=== PATIENT | male | born 1985 | race Caucasian/White ===

== ENCOUNTER 2017-11-24 06:23 | Emergency (ER) | payer SELFPAY ==
[2017-11-24 06:30] VITALS: RESP 18
--- NOTE | 2017-11-24 07:33 | ED ---
General Adult HPI - General Chief complaint: Urogenital Stated complaint: Groin pain Time Seen by Provider: 11/24/17 07:22 Source: patient, RN notes reviewed Mode of arrival: ambulatory Limitations: no limitations - History of Present Illness Initial comments: Patient is a pleasant 32-year-old male presenting to the emergency department with left inguinal pain. Symptoms have been present for around one year. Symptoms have been somewhat worse the past couple of weeks. Discomfort usually is worse in the morning or late at night. Discomfort is also additional at times. Patient does not feel any lumps or bumps. No redness. Occasionally discomfort will radiate down somewhat towards the testicle. Otherwise no testicle pain. No fevers. No dysuria or hematuria. No constipation or diarrhea. - Related Data Home Medications Medication Instructions Recorded Confirmed No Known Home Medications [No 11/24/17 11/24/17 Known Home Medications] Allergies Allergy/AdvReac Type Severity Reaction Status Date / Time Milk Containing Products Allergy Swelling Verified 11/24/17 07:15 [Dairy] Review of Systems ROS Statement: Those systems with pertinent positive or pertinent negative responses have been documented in the HPI. ROS Other: All systems not noted in ROS Statement are negative. Constitutional: Denies: fever Eyes: Denies: eye pain ENT: Denies: ear pain Respiratory: Denies: cough Cardiovascular: Denies: chest pain Endocrine: Denies: fatigue Gastrointestinal: Denies: abdominal pain (The area is left inguinal) Genitourinary: Reports: as per HPI. Denies: urgency, dysuria, frequency, hematuria, discharge, testicular mass Musculoskeletal: Denies: back pain Skin: Denies: rash Neurological: Denies: weakness Past Medical History Past Medical History: COPD History of Any Multi-Drug Resistant Organisms: None Reported Past Surgical History: Orthopedic Surgery Additional Past Surgical History / Comment(s): right elbow Past Psychological History: No Psychological Hx Reported Smoking Status: Former smoker Past Alcohol Use History: Occasional Past Drug Use History: None Reported General Exam Limitations: no limitations General appearance: alert, in no apparent distress Respiratory exam: Present: normal lung sounds bilaterally Cardiovascular Exam: Present: regular rate, normal rhythm GI/Abdominal exam: Present: soft, normal bowel sounds. Absent: distended, tenderness, guarding, rebound, rigid, pulsatile mass exam: Present: other (Minimal discomfort left inguinal region. No swelling. No hernia on exam.). Absent: testicular tenderness, scrotal swelling Extremities exam: Present: normal inspection Neurological exam: Present: alert Psychiatric exam: Present: normal affect, normal mood Skin exam: Present: normal color. Absent: rash Course Vital Signs 11/24/17 06:26 Temperature 97.1 F L Pulse Rate 61 Respiratory 18 Rate Blood Pressure 139/76 O2 Sat by Pulse 98 Oximetry Medical Decision Making - Medical Decision Making Patient reevaluated and resting comfortably in bed. Patient is updated on results and need for follow-up. - Lab Data Lab Results 11/24/17 Range/Units 06:42 Urine Color Yellow Urine Appearance Clear (Clear) Urine pH 5.5 (5.0-8.0) Ur Specific [place] 1.025 (1.001-1.035) Urine Protein Negative (Negative) Urine Glucose (UA) Negative (Negative) Urine Ketones Negative (Negative) Urine Blood Negative (Negative) Urine Nitrite Negative (Negative) Urine Bilirubin Negative (Negative) Urine Urobilinogen <2.0 (<2.0) mg/dL Ur Leukocyte Esterase Negative (Negative) - Radiology Data Radiology results: report reviewed (Scrotal ultrasound shows no evidence of torsion. There is a minimal varicocele on the left.), image reviewed (KUB shows : Correlate for enteritis or ileus.) Disposition Clinical Impression: Left inguinal pain Disposition: HOME SELF-CARE Condition: Stable Instructions: Groin Pain (ED) Additional Instructions: Please follow-up with surgeon and urologist in the next couple of days for recheck. Please also follow-up with primary care physician. Return for swelling, redness, abdominal pain, fevers, worsening or changing symptoms or other concerns. Is patient prescribed a controlled substance at d/c from ED?: No Referrals: Chase Pantoja MD [STAFF PHYSICIAN] - 1-2 days Michael Saleem MD [STAFF PHYSICIAN] - 1-2 days Yesica Drew MD [REFERRING] - 1-2 days Time of Disposition: 08:35
[2017-11-24 07:49] LABS: Appearance,Urine Clear (Clear); Bilirubin,Urine Negative (Negative); Blood,Urine Negative (Negative); Color,Urine Yellow; Glucose,Urine (UA) Negative (Negative); Ketones,Urine Negative (Negative); Leukocyte Esterase,Urine Negative (Negative); Nitrite,Urine Negative (Negative); PH, Urine 5.5 (5.0-8.0); Protein,Urine Negative (Negative); Specific Gravity,Urine 1.025 (1.001-1.035); Urobilinogen,Urine <2.0 mg/dL (<2.0)
--- NOTE | 2017-11-24 08:17 | US ---
EXAMINATION TYPE: US scrotum with doppler. Grayscale and color Doppler Duplex imaging performed of t he scrotum. DATE OF EXAM: 11/24/2017 COMPARISON: NONE CLINICAL HISTORY: Pain, examine L inguinal area. Left groin pain EXAM MEASUREMENTS: TESTICLES: Right Testicle: 4.2 x 2.3 x 3.0 cm Left Testicle: 4.0 x 1.9 x 3.0 cm EPIDIDYMIS HEAD: Right Epididymis: 1.1 cm Left Epididymis: 0.7 cm Doppler performed to assess for testicular vascularity; good bilateral color flow and waveforms are s een. There is no evidence of testicular torsion. Presence of hydroceles: No Presence of varicoceles: Minimal, on the left Testicular echotexture is homogenous and symmetric. IMPRESSION: No evident testicular torsion.
--- NOTE | 2017-11-24 08:18 | XR ---
Abdomen HISTORY: Left lower quadrant pain Frontal view of the abdomen on 2 images Bone mineralization is normal. There is no pneumoperitoneum or bowel obstruction. Air-fluid levels ar e present without bowel distention. Lung bases are clear. IMPRESSION: Correlate for enteritis or ileus, follow-up as indicated.
[2017-11-24 08:48] VITALS: BP 122/79
[2017-11-24 08:49] VITALS: PULSE 62; TEMP 97.3
== END 2017-11-24 08:57 | disposition home or self-care (01) ==
LOC: EC 06:23
DX: R10.32 Left lower quadrant pain (principal); I86.1 Scrotal varices; Z87.891 Personal history of nicotine dependence; Z91.011 Allergy to milk products
CPT/HCPCS: 74018; 76870; 81003; 87086; 93975; 99284

== ENCOUNTER 2019-09-03 09:47 | Inpatient (IN) | payer BC, OTHER ==
[2019-09-03] MEDS: SODIUM CHLORIDE 0.9% 1,000 ML IV ONE ×2 (11:00→11:52)
[2019-09-03] MEDS ORDERED: methylPREDNISolone SOD SUCCI 125 MG/2 ML VIAL IV STA (11:19)
[2019-09-03] MEDS ORDERED: IPRATROPIUM-ALBUTEROL 3 ML NEB INHALATION STA ×2 (11:19→12:15)
[2019-09-03] MEDS ORDERED: ACETAMINOPHEN TAB 500 MG TAB PO STA (11:50)
[2019-09-03] MEDS ORDERED: KETOROLAC 30 MG/ML 1 ML VIAL IVP STA (11:50)
--- NOTE | 2019-09-03 11:57 | ED ---
General Adult HPI - General Source: patient, RN notes reviewed, old records reviewed Mode of arrival: ambulatory Limitations: no limitations <China Santo - Last Filed: 09/03/19 13:13> <Briana Shah - Last Filed: 09/05/19 20:04> - General Chief complaint: Upper Respiratory Infection Stated complaint: SOB/Chest Pain/Cough Time Seen by Provider: 09/03/19 10:00 - History of Present Illness Initial comments: Patient is a 33-year-old male with a history of asthma who presents today with complaints of wheezing, shortness of breath and cough and low-grade fever for the past day. Patient has had no history of sick contacts. He is here with his 's otherwise been healthy. They deny any recent travel history. Patient reports that he has been admitted in the past for prolonged asthma. Denies any history of intubation. Patient reports he previously saw Dr. Wise. (China Santo) - Related Data Home Medications Medication Instructions Recorded Confirmed Famotidine 40 mg PO DAILY 09/03/19 09/03/19 Allergies Allergy/AdvReac Type Severity Reaction Status Date / Time Milk Containing Products Allergy Swelling Verified 09/03/19 13:17 [Dairy] Review of Systems ROS Other: All systems not noted in ROS Statement are negative. <China Santo - Last Filed: 09/03/19 13:13> ROS Other: All systems not noted in ROS Statement are negative. <Briana Shah - Last Filed: 09/05/19 20:04> ROS Statement: Those systems with pertinent positive or pertinent negative responses have been documented in the HPI. Past Medical History Past Medical History: COPD History of Any Multi-Drug Resistant Organisms: None Reported Past Surgical History: Orthopedic Surgery Additional Past Surgical History / Comment(s): right elbow Past Psychological History: No Psychological Hx Reported Smoking Status: Former smoker Past Alcohol Use History: Occasional Past Drug Use History: None Reported <China Santo - Last Filed: 09/03/19 13:13> General Exam Limitations: no limitations General appearance: alert, in no apparent distress Head exam: Present: atraumatic, normocephalic, normal inspection Eye exam: Present: normal appearance, PERRL, EOMI. Absent: scleral icterus, conjunctival injection, periorbital swelling ENT exam: Present: normal exam Neck exam: Present: normal inspection. Absent: tenderness, meningismus, lymphadenopathy Respiratory exam: Present: wheezes. Absent: normal lung sounds bilaterally, respiratory distress, rales, rhonchi, stridor Cardiovascular Exam: Present: regular rate, normal rhythm, normal heart sounds. Absent: systolic murmur, diastolic murmur, rubs, gallop, clicks GI/Abdominal exam: Present: soft, normal bowel sounds. Absent: distended, tenderness, guarding, rebound, rigid Extremities exam: Present: normal inspection, full ROM, normal capillary refill. Absent: tenderness, pedal edema, joint swelling, calf tenderness Back exam: Present: normal inspection Neurological exam: Present: alert, oriented X3, CN II-XII intact Psychiatric exam: Present: normal affect, normal mood Skin exam: Present: warm, dry, intact, normal color. Absent: rash <China Santo - Last Filed: 09/03/19 13:13> - General Exam Comments Initial Comments: 33 year old male. No distress, wheezing. (China Santo) Course Vital Signs 09/03/19 09/03/19 09/03/19 09:53 10:30 10:53 Temperature 98.4 F Pulse Rate 117 H 107 H 118 H Respiratory 18 22 20 Rate Blood Pressure 114/84 O2 Sat by Pulse 98 Oximetry 09/03/19 09/03/19 09/03/19 12:27 12:37 12:57 Temperature 98.1 F Pulse Rate 112 H 126 H 111 H Respiratory 20 18 15 Rate Blood Pressure 112/76 O2 Sat by Pulse 94 L Oximetry 09/03/19 14:15 Temperature 98 F Pulse Rate 115 H Respiratory 20 Rate Blood Pressure 111/70 O2 Sat by Pulse 95 Oximetry Medical Decision Making - Lab Data Result diagrams: 09/03/19 10:36 09/03/19 10:36 - Radiology Data Radiology results: report reviewed <China Santo - Last Filed: 09/03/19 13:13> - Lab Data Result diagrams: 09/04/19 07:20 09/04/19 07:20 <Briana Shah - Last Filed: 09/05/19 20:04> - Medical Decision Making Patient is a 33-year-old male who presents today for evaluation for difficulty breathing and wheezing. Worsening symptoms over the past 2 days. He is a nonsmoker. Patient reports his been using albuterol home and not having any relief. Patient arrived tachycardic with audible wheezing upon entering room. Patient has been slightly improved after 3 DuoNeb treatments but continues to be hypoxic at 92% on room air. Given IV Solu-Medrol magnesium. Is given Toradol for her history of fever recently. He has been afebrile emergency department. He denies any travel history or history of sick contacts. At this time Patient will be admitted after discussing the case with Dr. Marx. She discussed the case with [facility] hospitalist. Also chest x-ray shows evidence of bronchitis or atypical pneumonia. Patient will have blood cultures completed, and started on Rocephin and azithromycin. (China Santo) I was available for consultation in the emergency department. The history and physical exam were done by the midlevel provider. I was consulted for this patients care. I reviewed the case with the midlevel provider and based on their presentation of the patient, I agree with the assessment, medical decision making and plan of care as documented. Chart was dictated using [employer] dictation software. Attempts were made to correct any dictation errors however some typographical errors may persist. (Briana Shah) - Lab Data Lab Results 09/03/19 09/03/19 09/03/19 Range/Units 09:56 10:36 10:36 WBC 15.6 H (3.8-10.6) k/uL RBC 5.71 (4.30-5.90) m/uL Hgb 16.7 (13.0-17.5) gm/dL Hct 50.4 (39.0-53.0) % MCV 88.2 (80.0-100.0) fL MCH 29.2 (25.0-35.0) pg MCHC 33.1 (31.0-37.0) g/dL RDW 12.1 (11.5-15.5) % Plt Count 220 (150-450) k/uL Neutrophils % 84 % Lymphocytes % 7 % Monocytes % 5 % Eosinophils % 3 % Basophils % 0 % Neutrophils # 13.1 H (1.3-7.7) k/uL Lymphocytes # 1.0 (1.0-4.8) k/uL Monocytes # 0.8 (0-1.0) k/uL Eosinophils # 0.5 (0-0.7) k/uL Basophils # 0.0 (0-0.2) k/uL Sodium 143 (137-145) mmol/L Potassium 4.4 (3.5-5.1) mmol/L Chloride 102 (98-107) mmol/L Carbon Dioxide 31 H (22-30) mmol/L Anion Gap 10 mmol/L BUN 13 (9-20) mg/dL Creatinine 0.85 (0.66-1.25) mg/dL Est GFR (CKD-EPI)AfAm >90 (>60 ml/min/1.73 sqM) Est GFR (CKD-EPI)NonAf >90 (>60 ml/min/1.73 sqM) Glucose 100 H (74-99) mg/dL Calcium 10.0 (8.4-10.2) mg/dL Total Bilirubin 0.9 (0.2-1.3) mg/dL AST 24 (17-59) U/L ALT 21 (4-49) U/L Alkaline Phosphatase 88 (38-126) U/L Total Protein 8.2 (6.3-8.2) g/dL Albumin 5.3 H (3.5-5.0) g/dL Influenza Type A RNA Not Detected (Not Detectd) Influenza Type B (PCR) Not Detected (Not Detectd) - Radiology Data Chest x-ray shows coarse and prominent perihilar lung markings. Consider b ronchitis or atypical pneumonia. (China Santo) Disposition Is patient prescribed a controlled substance at d/c from ED?: No Time of Disposition: 13:17 <China Santo - Last Filed: 09/03/19 13:13> <Briana Shah - Last Filed: 09/05/19 20:04> Clinical Impression: Asthma, Bronchitis, Hypoxia Disposition: ADMITTED IP TO THIS HOSP Condition: Stable
[2019-09-03 12:02] LABS: Basophils % (A) 0 %; Eosinophils # (A) 0.5 k/uL (0-0.7); Eosinophils % (A) 3 %; HCT 50.4 % (39.0-53.0); HGB 16.7 gm/dL (13.0-17.5); Lymphocytes % (A) 7 %; MCH 29.2 pg (25.0-35.0); MCHC 33.1 g/dL (31.0-37.0); MCV 88.2 fL (80.0-100.0); Mean Platelet Volume 8.6; Monocytes # (A) 0.8 k/uL (0-1.0); Monocytes % (A) 5 %; Neutrophils # (A) 13.1 k/uL (1.3-7.7); Neutrophils % (A) 84 %; Platelet Count 220 k/uL (150-450); RBC 5.71 m/uL (4.30-5.90); RDW 12.1 % (11.5-15.5); WBC 15.6 k/uL (3.8-10.6)
[2019-09-03 12:10] LABS: ALT 21 U/L (4-49); AST 24 U/L (17-59); African American GFR (CKD) >90 (>60 ml/min/1.73 sqM); Albumin 5.3 g/dL (3.5-5.0); Alkaline Phosphatase 88 U/L (38-126); Anion Gap 10 mmol/L; Blood Urea Nitrogen 13 mg/dL (9-20); Carbon Dioxide 31 mmol/L (22-30); Chloride 102 mmol/L (98-107); Glucose 100 mg/dL (74-99); Non-African American GFR(CKD) >90 (>60 ml/min/1.73 sqM); Potassium 4.4 mmol/L (3.5-5.1); Sodium 143 mmol/L (137-145); Total Bilirubin 0.9 mg/dL (0.2-1.3); Total Protein 8.2 g/dL (6.3-8.2)
[2019-09-03] MEDS ORDERED: MAGNESIUM SULFATE-D5W PMX 1 GM in DEXTROSE/WATER 1 100ML.BAG IVPB STA (12:15)
--- NOTE | 2019-09-03 12:40 | XR ---
EXAMINATION TYPE: XR chest 2V DATE OF EXAM: 09/03/2019 COMPARISON: 05/06/2013 HISTORY: Cough and fever TECHNIQUE: Frontal and lateral views of the chest are obtained. FINDINGS: Prominent perihilar lung markings. There is no focal air space opacity, pleural effusion, or pneumothorax seen. The cardiac silhouette size is within normal limits. The osseous structures are intact. IMPRESSION: Coarsened and prominent perihilar lung markings. Consider bronchitis or atypical pneumon ia.
[2019-09-03] MEDS: SODIUM CHLORIDE 0.9% 1,000 ML IV SCH ×2 (12:51→20:39)
[2019-09-03] MEDS ORDERED: AZITHROMYCIN 500 MG TAB PO STA (12:57)
[2019-09-03] MEDS ORDERED: KETOROLAC 30 MG/ML 1 ML VIAL IVP PRN (13:17)
[2019-09-03] MEDS ORDERED: IBUPROFEN 400 MG TAB PO PRN (13:17)
[2019-09-03] MEDS ORDERED: ONDANSETRON 4 MG/2 ML VIAL IVP PRN (13:17)
[2019-09-03] MEDS ORDERED: NALOXONE 0.4 MG/ML 1 ML VIAL IV PRN (13:17)
[2019-09-03] MEDS: IPRATROPIUM-ALBUTEROL 3 ML NEB INHALATION PRN ×2 (15:57→19:53)
[2019-09-03 17:04] LABS: Glucose,Whole Blood 171 mg/dL (75-99)
[2019-09-03] MEDS: methylPREDNISolone SOD SUCCI 125 MG/2 ML VIAL IV SCH ×2 (18:05→23:19)
[2019-09-03] MEDS: INSULIN ASPART (NovoLOG) 100 UNIT/ML VIAL SQ SCH ×2 (18:05→20:38)
[2019-09-03 20:18] LABS: Glucose,Whole Blood 145 mg/dL (75-99)
[2019-09-03] MEDS: guaiFENesin 600 MG TABLET.ER PO SCH (20:38)
[2019-09-03] MEDS: FAMOTIDINE 20 MG TAB PO SCH (20:38)
--- NOTE | 2019-09-03 21:16 | P.HPIM ---
History of Present Illness H&P Date: 09/03/19 Chief Complaint: Shortness of breath Patient is a 33-year-old male with a known history of asthma, previous history of smoking quit several years ago came to ER with complaints of shortness of breath, cough and nasal congestion and low-grade fever since yesterday. Patient does have cough without sputum production. No complaints of chest pain. No nausea vomiting or abdominal pain. Denied any diarrhea. Otherwise patient denied any sick contacts at home. No recent history of travel. No headache or dizziness or lightheadedness. Patient presented to ER due to worsening shortness of breath. Influenza A and B- WBC 15.6 Bicarb 31 Chest x-ray showed coarsened and prominent perihilar lung markings. Consider bronchitis or atypical pneumonia. Patient was tachycardic with heart rate in 120s on admission. Afebrile while in the hospital. Review of Systems Constitutional: Patient does have subjective fever or chills . Generalized weakness and malaise.. Abdomen: Patient denied nausea vomiting and diarrhea and abdominal pain. Cardiovascular: Patient denies any chest pain or short of breath no palpitations. Respiratory: Cough without sputum production and shortness of breath Neurologic: Patient denied any numbness or tingling headache. Musculoskeletal: Patient denies any complaints of joint swelling or deformity. Skin: Negative Psychiatric: Negative Endocrine: No heat or cold intolerance. No recent weight gain. Genitourinary: No dysuria or hematuria. All other 14 point ROS negative except the above Past Medical History Past Medical History: COPD History of Any Multi-Drug Resistant Organisms: None Reported Past Surgical History: Orthopedic Surgery Additional Past Surgical History / Comment(s): right elbow Past Psychological History: No Psychological Hx Reported Smoking Status: Former smoker Past Alcohol Use History: Occasional Past Drug Use History: None Reported - Past Family History Mother Family Medical History: Coronary Artery Disease (CAD), Hyperlipidemia, Hypertension Father Family Medical History: Coronary Artery Disease (CAD), Hyperlipidemia, Hypertension, Myocardial Infarction ([place]) Medications and Allergies Home Medications Medication Instructions Recorded Confirmed Type Famotidine 40 mg PO DAILY 09/03/19 09/03/19 History Allergies Allergy/AdvReac Type Severity Reaction Status Date / Time Milk Containing Products Allergy Swelling Verified 09/03/19 13:17 [Dairy] Physical Exam Vitals: Vital Signs Temp Pulse Resp BP Pulse Ox 09/03/19 14:15 98 F 115 H 20 111/70 95 09/03/19 12:57 98.1 F 111 H 15 112/76 94 L 09/03/19 12:37 126 H 18 09/03/19 12:27 112 H 20 09/03/19 10:53 118 H 20 09/03/19 10:30 107 H 22 09/03/19 09:53 98.4 F 117 H 18 114/84 98 Intake and Output 09/02/19 09/03/19 09/03/19 22:59 06:59 14:59 Other: Weight 77.111 kg PHYSICAL EXAMINATION: Patient is lying in the bed comfortably, no acute distress, awake alert and oriented.. HEENT: Normocephalic. Neck is supple. Pupils reactive. Nostrils clear. Oral cavity is moist. Ears reveal no drainage. Neck reveals no JVD, carotid bruits, or thyromegaly. CHEST EXAMINATION: Trachea is central. Symmetrical expansion. biLateral diminished air entry and wheezing, coarse breath sounds.. CARDIAC: Normal S1, S2 with no gallops. No murmurs ABDOMEN: Soft. Bowel sounds normal. No organomegaly. No abdominal bruits. Extremities: reveal no edema. No clubbing or cyanosis Neurologically awake, alert, oriented x3 with well-coordinated movements. No focal deficits noted Skin: No rash or skin lesions. Psychiatric: Coperative. Nonsuicidal Musculoskeletal: No joint swelling or deformity. Normal range of motion. Results CBC & Chem 7: 09/03/19 10:36 09/03/19 10:36 Labs: Abnormal Lab Results - Last 24 Hours (Table) 09/03/19 09/03/19 Range/Units 10:36 10:36 WBC 15.6 H (3.8-10.6) k/uL Neutrophils # 13.1 H (1.3-7.7) k/uL Carbon Dioxide 31 H (22-30) mmol/L Glucose 100 H (74-99) mg/dL Albumin 5.3 H (3.5-5.0) g/dL Thrombosis Risk Factor Assmnt - DVT/VTE Prophylaxis DVT/VTE Prophylaxis: Pharmacologic Prophylaxis ordered Assessment and Plan Assessment: Acute COPD exacerbation due to tracheobronchitis. Nasal congestion, cough and subjective fevers at home due to acute viral illness. Influenza negative. Possible pneumonia with prominent peribronchial lung markings Leukocytosis with WBC count 15.6 Previous history of smoking DVT prophylaxis Plan: Patient will be continued on IV steroids, DuoNeb's and antibiotics in the form of ceftriaxone and azithromycin. Influenza A and B-. Rule out viral infection. Continue to follow closely and further recommendations based on the clinical course. Consider pulmonary evaluation. Patient follows with Dr. Wise as an outpatient. Time with Patient: Greater than 30
[2019-09-04] MEDS: methylPREDNISolone SOD SUCCI 125 MG/2 ML VIAL IV SCH ×4 (03:48→23:20)
[2019-09-04 07:08] LABS: Glucose,Whole Blood 148 mg/dL (75-99)
[2019-09-04] MEDS: IPRATROPIUM-ALBUTEROL 3 ML NEB INHALATION PRN ×4 (07:29→20:00)
[2019-09-04 08:07] LABS: African American GFR (CKD) >90 (>60 ml/min/1.73 sqM); Anion Gap 10 mmol/L; Blood Urea Nitrogen 15 mg/dL (9-20); Calcium 9.4 mg/dL (8.4-10.2); Carbon Dioxide 22 mmol/L (22-30); Chloride 110 mmol/L (98-107); Glucose 149 mg/dL (74-99); Non-African American GFR(CKD) >90 (>60 ml/min/1.73 sqM); Potassium 4.1 mmol/L (3.5-5.1); Sodium 142 mmol/L (137-145)
[2019-09-04 08:14] LABS: Basophils % (A) 0 %; Eosinophils # (A) 0.1 k/uL (0-0.7); Eosinophils % (A) 1 %; HCT 46.8 % (39.0-53.0); Lymphocytes # (A) 0.7 k/uL (1.0-4.8); Lymphocytes % (A) 4 %; MCH 28.7 pg (25.0-35.0); MCHC 32.1 g/dL (31.0-37.0); MCV 89.4 fL (80.0-100.0); Mean Platelet Volume 8.4; Monocytes # (A) 0.2 k/uL (0-1.0); Monocytes % (A) 1 %; Neutrophils # (A) 14.1 k/uL (1.3-7.7); Neutrophils % (A) 94 %; Platelet Count 197 k/uL (150-450); RBC 5.24 m/uL (4.30-5.90); RDW 12.3 % (11.5-15.5)
[2019-09-04] MEDS: INSULIN ASPART (NovoLOG) 100 UNIT/ML VIAL SQ SCH ×4 (09:31→22:47)
[2019-09-04] MEDS: FAMOTIDINE 20 MG TAB PO SCH ×2 (09:51→19:41)
[2019-09-04] MEDS: SODIUM CHLORIDE 0.9% 1,000 ML IV SCH ×2 (09:51→19:37)
[2019-09-04] MEDS: guaiFENesin 600 MG TABLET.ER PO SCH ×2 (09:51→19:41)
[2019-09-04 12:04] LABS: Glucose,Whole Blood 126 mg/dL (75-99)
[2019-09-04] MEDS: AZITHROMYCIN 500 MG TAB PO SCH (12:23)
[2019-09-04 16:52] LABS: Glucose,Whole Blood 176 mg/dL (75-99)
[2019-09-04 19:54] LABS: Glucose,Whole Blood 112 mg/dL (75-99)
--- NOTE | 2019-09-04 22:05 | P.PN ---
Subjective Progress Note Date: 09/04/19 Principal diagnosis: Acute asthma exacerbation Acute tracheobronchitis possible viral. Patient is a 33-year-old male with a known history of asthma, previous history of smoking quit several years ago came to ER with complaints of shortness of breath, cough and nasal congestion and low-grade fever since yesterday. Patient does have cough without sputum production. No complaints of chest pain. No nausea vomiting or abdominal pain. Denied any diarrhea. Otherwise patient denied any sick contacts at home. No recent history of travel. No headache or dizziness or lightheadedness. Patient presented to ER due to worsening shortness of breath. Influenza A and B- WBC 15.6 Bicarb 31 Chest x-ray showed coarsened and prominent perihilar lung markings. Consider bronchitis or atypical pneumonia. Patient was tachycardic with heart rate in 120s on admission. Afebrile while in the hospital. 09/04/2019 Patient denied any complaints of chest pain. Still having shortness of breath and wheezing and exertional dyspnea. Patient has been afebrile. Does have leukocytosis likely due to IV steroids. Pending covid19 test. Patient is being continued on IV steroids, DuoNeb's. We will repeat chest x-ray tomorrow and follow closely. Continue with droplet and contact precautions. No nausea vomiting or abdominal pain or diarrhea. Current medications reviewed. Objective - Vital Signs Vital signs: Vital Signs Temp 98.0 F 09/04/19 16:00 Pulse 102 H 09/04/19 20:12 Resp 18 09/04/19 20:00 BP 134/79 09/04/19 16:00 Pulse Ox 98 09/04/19 16:17 Intake & Output 09/04/19 09/04/19 09/05/19 06:59 18:59 06:59 Intake Total 700 Balance 700 Intake: Intake, IV Titration 700 Amount Sodium Chloride 0.9% 1, 700 000 ml @ 100 mls/hr IV . Q10H [facility] Rx#:[id number] Other: Voiding Method Toilet Toilet Toilet # Voids 1 1 - Exam PHYSICAL EXAMINATION: Patient is lying in the bed comfortably, no acute distress, awake alert and oriented.. HEENT: Normocephalic. Neck is supple. Pupils reactive. Nostrils clear. Oral cavity is moist. Ears reveal no drainage. Neck reveals no JVD, carotid bruits, or thyromegaly. CHEST EXAMINATION: Trachea is central. Symmetrical expansion. Bilateral diffuse wheezing and rhonchi positive. . CARDIAC: Normal S1, S2 with no gallops. No murmurs ABDOMEN: Soft. Bowel sounds normal. No organomegaly. No abdominal bruits. Extremities: reveal no edema. No clubbing or cyanosis Neurologically awake, alert, oriented x3 with well-coordinated movements. No focal deficits noted Skin: No rash or skin lesions. Psychiatric: Coperative. Nonsuicidal Musculoskeletal: No joint swelling or deformity. Normal range of motion. - Labs CBC & Chem 7: 09/04/19 07:20 09/04/19 07:20 Labs: Abnormal Lab Results - Last 24 Hours (Table) 09/04/19 09/04/19 09/04/19 Range/Units 07:06 07:20 07:20 WBC 15.0 H (3.8-10.6) k/uL Neutrophils # 14.1 H (1.3-7.7) k/uL Lymphocytes # 0.7 L (1.0-4.8) k/uL Chloride 110 H (98-107) mmol/L Glucose 149 H (74-99) mg/dL POC Glucose (mg/dL) 148 H (75-99) mg/dL 09/04/19 09/04/19 09/04/19 Range/Units 12:01 16:49 19:52 WBC (3.8-10.6) k/uL Neutrophils # (1.3-7.7) k/uL Lymphocytes # (1.0-4.8) k/uL Chloride (98-107) mmol/L Glucose (74-99) mg/dL POC Glucose (mg/dL) 126 H 176 H 112 H (75-99) mg/dL Microbiology - Last 24 Hours (Table) 09/03/19 13:24 Blood Culture - Preliminary Blood No Growth after 24 hours Assessment and Plan Assessment: Acute COPD exacerbation due to tracheobronchitis. Nasal congestion, cough and subjective fevers at home due to acute viral illness. Influenza negative. Possible pneumonia with prominent peribronchial lung markings Leukocytosis with WBC count 15.6 Previous history of smoking DVT prophylaxis Plan: Patient will be continued on IV steroids, DuoNeb's and antibiotics in the form of ceftriaxone and azithromycin. Influenza A and B-. Rule out viral infection. Continue to follow closely and further recommendations based on the clinical course. Consider pulmonary evaluation. Patient follows with Dr. Wise as an outpatient. Time with Patient: Greater than 30
[2019-09-04] MEDS: HEPARIN SODIUM,PORCINE 5,000 UNIT/ML 1 ML VIAL SQ SCH (23:19)
[2019-09-05] MEDS: methylPREDNISolone SOD SUCCI 125 MG/2 ML VIAL IV SCH ×4 (05:12→23:20)
[2019-09-05 06:48] LABS: Glucose,Whole Blood 132 mg/dL (75-99)
[2019-09-05] MEDS: IPRATROPIUM-ALBUTEROL 3 ML NEB INHALATION PRN ×2 (07:31→20:42)
[2019-09-05] MEDS: BUDESONIDE 0.5 MG/2 ML NEBU INHALATION SCH ×2 (07:31→20:42)
--- NOTE | 2019-09-05 07:41 | XR ---
EXAMINATION TYPE: XR chest 1V DATE OF EXAM: 09/05/2019 COMPARISON: 09/03/2019 HISTORY: Shortness of breath TECHNIQUE: Single frontal view of the chest is obtained. FINDINGS: There is no focal air space opacity, pleural effusion, or pneumothorax seen. The cardiac silhouette size is within normal limits. The osseous structures are intact. IMPRESSION: No acute process.
[2019-09-05] MEDS: HEPARIN SODIUM,PORCINE 5,000 UNIT/ML 1 ML VIAL SQ SCH ×3 (09:47→23:20)
[2019-09-05] MEDS: guaiFENesin 600 MG TABLET.ER PO SCH ×2 (09:47→20:20)
[2019-09-05] MEDS: FAMOTIDINE 20 MG TAB PO SCH ×2 (09:47→17:28)
[2019-09-05] MEDS: INSULIN ASPART (NovoLOG) 100 UNIT/ML VIAL SQ SCH ×4 (09:47→20:17)
[2019-09-05] MEDS: ACETAMINOPHEN TAB 325 MG TAB PO PRN ×2 (09:49→21:13)
[2019-09-05] MEDS: AZITHROMYCIN 500 MG TAB PO SCH (12:10)
[2019-09-05 12:12] LABS: Glucose,Whole Blood 116 mg/dL (75-99)
--- NOTE | 2019-09-05 12:50 | P.CNPUL ---
History of Present Illness Consult date: 09/05/19 Reason for consult: dyspnea, cough, asthma, COPD Chief complaint: Shortness of breath History of present illness: This is a 33-year-old male seen eval examined, patient came into the hospital with 5 day history of increasing cough congestion shortness of breath, patient has a history of severe asthma in the past, denies any chills cough is associated with yellow sputum production his chest x-ray suggestive of the pro minent perihilar marking, however follow-up chest x-ray essentially within normal limit Review of Systems All systems: negative Past Medical History Past Medical History: COPD History of Any Multi-Drug Resistant Organisms: None Reported Past Surgical History: Orthopedic Surgery Additional Past Surgical History / Comment(s): right elbow Past Psychological History: No Psychological Hx Reported Smoking Status: Former smoker Past Alcohol Use History: Occasional Past Drug Use History: None Reported - Past Family History Mother Family Medical History: Coronary Artery Disease (CAD), Hyperlipidemia, Hypertension Father Family Medical History: Coronary Artery Disease (CAD), Hyperlipidemia, Hypertension, Myocardial Infarction (DE) Medications and Allergies Home Medications Medication Instructions Recorded Confirmed Type Famotidine 40 mg PO DAILY 09/03/19 09/03/19 History Allergies Allergy/AdvReac Type Severity Reaction Status Date / Time Milk Containing Products Allergy Swelling Verified 09/03/19 13:17 [Dairy] Physical Exam Vitals: Vital Signs Temp Pulse Pulse Resp BP Pulse Ox 09/05/19 09:39 97.7 F 98 16 145/71 92 L 09/04/19 23:58 78 18 09/04/19 23:53 78 18 09/04/19 23:30 97.9 F 78 18 132/77 95 09/04/19 20:12 102 H 09/04/19 20:03 98 09/04/19 20:00 109 H 18 09/04/19 16:26 105 H 09/04/19 16:17 98 09/04/19 16:16 103 H 09/04/19 16:00 98.0 F 109 H 18 134/79 95 09/04/19 13:51 93 09/04/19 13:36 89 Intake and Output 09/04/19 09/05/19 09/05/19 22:59 06:59 14:59 Intake Total 60 Balance 60 Intake: Intake, IV Titration 60 Amount Sodium Chloride 0.9% 1, 60 000 ml @ 100 mls/hr IV . Q10H [facility] Rx#:[id number] Other: Voiding Method Toilet Toilet Toilet # Voids 1 1 - Constitutional General appearance: average body habitus, cooperative - EENT Eyes: normal appearance ENT: normal oropharynx Ears: bilateral: normal - Neck Carotids: bilateral: upstroke normal Thyroid: bilateral: normal size - Respiratory Respiratory: bilateral: wheezing (Bilateral inspiratory expiratory), prolonged expiration, negative: CTA, diminished, dullness, rales, rhonchi - Cardiovascular Rhythm: regular Heart sounds: normal: S1, S2 - Gastrointestinal General gastrointestinal: soft - Integumentary Integumentary: normal turgor - Neurologic Neurologic: CNII-XII intact - Musculoskeletal Musculoskeletal: gait normal, generalized weakness, strength equal bilaterally - Psychiatric Psychiatric: A&O x's 3, appropriate affect, intact judgment & insight Results - Laboratory Findings CBC and BMP: 09/04/19 07:20 09/04/19 07:20 Abnormal lab findings: Abnormal Labs 09/03/19 09/03/19 09/03/19 10:36 10:36 17:03 WBC 15.6 H Neutrophils # 13.1 H Lymphocytes # Chloride Carbon Dioxide 31 H Glucose 100 H POC Glucose (mg/dL) 171 H Albumin 5.3 H 09/03/19 09/04/19 09/04/19 20:15 07:06 07:20 WBC 15.0 H Neutrophils # 14.1 H Lymphocytes # 0.7 L Chloride Carbon Dioxide Glucose POC Glucose (mg/dL) 145 H 148 H Albumin 09/04/19 09/04/19 09/04/19 07:20 12:01 16:49 WBC Neutrophils # Lymphocytes # Chloride 110 H Carbon Dioxide Glucose 149 H POC Glucose (mg/dL) 126 H 176 H Albumin 09/04/19 09/05/19 09/05/19 19:52 06:46 12:10 WBC Neutrophils # Lymphocytes # Chloride Carbon Dioxide Glucose POC Glucose (mg/dL) 112 H 132 H 116 H Albumin - Diagnostic Findings Chest x-ray: report reviewed, image reviewed (Finding as noted above) Assessment and Plan Assessment: Interstitial pneumonia Acute asthma exacerbation History of COPD Chronic intermittent asthma has been stable off of therapy Plan: Continue bronchodilators IV steroids with broad-spectrum antibiotics Time with Patient: Greater than 30
[2019-09-05 16:34] LABS: Glucose,Whole Blood 128 mg/dL (75-99)
[2019-09-05 19:32] LABS: Glucose,Whole Blood 128 mg/dL (75-99)
[2019-09-06] MEDS: methylPREDNISolone SOD SUCCI 125 MG/2 ML VIAL IV SCH ×4 (04:52→23:25)
[2019-09-06 07:37] LABS: Glucose,Whole Blood 149 mg/dL (75-99)
[2019-09-06] MEDS: BUDESONIDE 0.5 MG/2 ML NEBU INHALATION SCH ×2 (08:01→20:34)
[2019-09-06] MEDS: IPRATROPIUM-ALBUTEROL 3 ML NEB INHALATION PRN ×4 (08:01→20:34)
[2019-09-06] MEDS: INSULIN ASPART (NovoLOG) 100 UNIT/ML VIAL SQ SCH ×4 (08:07→20:35)
[2019-09-06] MEDS: HEPARIN SODIUM,PORCINE 5,000 UNIT/ML 1 ML VIAL SQ SCH ×3 (08:07→23:25)
[2019-09-06] MEDS: FAMOTIDINE 20 MG TAB PO SCH ×2 (08:07→20:22)
[2019-09-06] MEDS: guaiFENesin 600 MG TABLET.ER PO SCH ×2 (08:07→20:22)
[2019-09-06 11:55] LABS: Glucose,Whole Blood 132 mg/dL (75-99)
[2019-09-06 12:01] LABS: Basophils % (A) 0 %; Eosinophils # (A) 0.1 k/uL (0-0.7); Eosinophils % (A) 0 %; HCT 46.5 % (39.0-53.0); HGB 15.2 gm/dL (13.0-17.5); Lymphocytes # (A) 0.6 k/uL (1.0-4.8); Lymphocytes % (A) 4 %; MCH 29.3 pg (25.0-35.0); MCHC 32.6 g/dL (31.0-37.0); MCV 89.7 fL (80.0-100.0); Mean Platelet Volume 8.4; Monocytes # (A) 0.7 k/uL (0-1.0); Monocytes % (A) 5 %; Neutrophils # (A) 13.6 k/uL (1.3-7.7); Neutrophils % (A) 90 %; Platelet Count 236 k/uL (150-450); RBC 5.19 m/uL (4.30-5.90); RDW 12.2 % (11.5-15.5); WBC 15.1 k/uL (3.8-10.6)
[2019-09-06 12:09] LABS: African American GFR (CKD) >90 (>60 ml/min/1.73 sqM); Anion Gap 9 mmol/L; Blood Urea Nitrogen 21 mg/dL (9-20); Calcium 9.8 mg/dL (8.4-10.2); Carbon Dioxide 27 mmol/L (22-30); Chloride 104 mmol/L (98-107); Glucose 122 mg/dL (74-99); Non-African American GFR(CKD) >90 (>60 ml/min/1.73 sqM); Potassium 4.8 mmol/L (3.5-5.1); Sodium 140 mmol/L (137-145)
[2019-09-06] MEDS: AZITHROMYCIN 500 MG TAB PO SCH (12:21)
--- NOTE | 2019-09-06 13:03 | P.PN ---
Subjective Progress Note Date: 09/06/19 Principal diagnosis: Interstitial pneumonia Acute asthma exacerbation History of COPD Chronic intermittent asthma has been stable off of therapy COVID 19 test pending 09/06/2019, shortness breath cough wheezing significantly improved denies any chest pain, breathing is better, covid19 pending, patient can be discharged once test results are available from pulmonary standpoint depending upon testing results Objective - Vital Signs Vital signs: Vital Signs Temp 97.8 F 09/06/19 07:47 Pulse 92 09/06/19 11:37 Resp 18 09/06/19 07:47 BP 128/78 09/06/19 07:47 Pulse Ox 94 L 09/06/19 07:47 Intake & Output 09/05/19 09/06/19 09/06/19 18:59 06:59 18:59 Intake Total 480 Balance 480 Intake: Other 480 Other: Voiding Method Toilet Toilet Toilet # Voids 1 2 - Exam - Constitutional General appearance: average body habitus, cooperative - EENT Eyes: normal appearance ENT: normal oropharynx Ears: bilateral: normal - Neck Carotids: bilateral: upstroke normal Thyroid: bilateral: normal size - Respiratory Respiratory: bilateral: wheezing (Bilateral inspiratory expiratory), prolonged expiration, negative: CTA, diminished, dullness, rales, rhonchi - Cardiovascular Rhythm: regular Heart sounds: normal: S1, S2 - Gastrointestinal General gastrointestinal: soft - Integumentary Integumentary: normal turgor - Neurologic Neurologic: CNII-XII intact - Musculoskeletal Musculoskeletal: gait normal, generalized weakness, strength equal bilaterally - Psychiatric Psychiatric: A&O x's 3, appropriate affect, intact judgment & insight - Labs CBC & Chem 7: 09/06/19 11:23 09/06/19 11:23 Labs: Abnormal Lab Results - Last 24 Hours (Table) 09/05/19 09/05/19 09/06/19 Range/Units 16:33 19:28 07:32 WBC (3.8-10.6) k/uL Neutrophils # (1.3-7.7) k/uL Lymphocytes # (1.0-4.8) k/uL BUN (9-20) mg/dL Glucose (74-99) mg/dL POC Glucose (mg/dL) 128 H 128 H 149 H (75-99) mg/dL 09/06/19 09/06/19 09/06/19 Range/Units 11:23 11:23 11:51 WBC 15.1 H (3.8-10.6) k/uL Neutrophils # 13.6 H (1.3-7.7) k/uL Lymphocytes # 0.6 L (1.0-4.8) k/uL BUN 21 H (9-20) mg/dL Glucose 122 H (74-99) mg/dL POC Glucose (mg/dL) 132 H (75-99) mg/dL Microbiology - Last 24 Hours (Table) 09/03/19 13:24 Blood Culture - Preliminary Blood No Growth after 48 hours Assessment and Plan Assessment: Interstitial pneumonia Acute asthma exacerbation History of COPD Chronic intermittent asthma has been stable off of therapy Plan: Continue bronchodilators IV steroids with broad-spectrum antibiotics Time with Patient: Greater than 30
[2019-09-06 16:59] LABS: Glucose,Whole Blood 116 mg/dL (75-99)
[2019-09-06 20:29] LABS: Glucose,Whole Blood 133 mg/dL (75-99)
[2019-09-06] MEDS: ACETAMINOPHEN TAB 325 MG TAB PO PRN (20:33)
--- NOTE | 2019-09-06 23:21 | P.PN ---
Subjective Progress Note Date: 09/05/19 Principal diagnosis: Acute asthma exacerbation Acute tracheobronchitis possible viral. Patient is a 33-year-old male with a known history of asthma, previous history of smoking quit several years ago came to ER with complaints of shortness of breath, cough and nasal congestion and low-grade fever since yesterday. Patient does have cough without sputum production. No complaints of chest pain. No nausea vomiting or abdominal pain. Denied any diarrhea. Otherwise patient denied any sick contacts at home. No recent history of travel. No headache or dizziness or lightheadedness. Patient presented to ER due to worsening shortness of breath. Influenza A and B- WBC 15.6 Bicarb 31 Chest x-ray showed coarsened and prominent perihilar lung markings. Consider bronchitis or atypical pneumonia. Patient was tachycardic with heart rate in 120s on admission. Afebrile while in the hospital. 09/04/2019 Patient denied any complaints of chest pain. Still having shortness of breath and wheezing and exertional dyspnea. Patient has been afebrile. Does have leukocytosis likely due to IV steroids. Pending covid19 test. Patient is being continued on IV steroids, DuoNeb's. We will repeat chest x-ray tomorrow and follow closely. Continue with droplet and contact precautions. No nausea vomiting or abdominal pain or diarrhea. September 05 2019 Patient says that he still having exertional dyspnea. Slight improvement compared to yesterday. Currently being continued on IV steroids and DuoNeb's area Pulmicort was added. No fever no chills. Patient does have cough without sputum production. No complaints of chest pain. Repeat chest x-ray showed no acute pulmonary proc ess. Current medications reviewed. Objective - Vital Signs Vital signs: Vital Signs Temp 97.8 F 09/05/19 19:38 Pulse 100 09/05/19 20:43 Resp 18 09/05/19 15:50 BP 145/75 09/05/19 19:38 Pulse Ox 95 09/05/19 19:38 Intake & Output 09/05/19 09/05/19 09/06/19 06:59 18:59 06:59 Intake Total 60 480 Balance 60 480 Intake: Intake, IV Titration 60 Amount Sodium Chloride 0.9% 1, 60 000 ml @ 100 mls/hr IV . Q10H [facility] Rx#:[id number] Other 480 Other: Voiding Method Toilet Toilet # Voids 1 1 - Exam PHYSICAL EXAMINATION: Patient is lying in the bed comfortably, no acute distress, awake alert and oriented.. HEENT: Normocephalic. Neck is supple. Pupils reactive. Nostrils clear. Oral cavity is moist. Ears reveal no drainage. Neck reveals no JVD, carotid bruits, or thyromegaly. CHEST EXAMINATION: Trachea is central. Symmetrical expansion. Bilateral diffuse wheezing and scattered rhonchi. . CARDIAC: Normal S1, S2 with no gallops. No murmurs ABDOMEN: Soft. Bowel sounds normal. No organomegaly. No abdominal bruits. Extremities: reveal no edema. No clubbing or cyanosis Neurologically awake, alert, oriented x3 with well-coordinated movements. No focal deficits noted Skin: No rash or skin lesions. Psychiatric: Coperative. Nonsuicidal Musculoskeletal: No joint swelling or deformity. Normal range of motion. - Labs CBC & Chem 7: 09/06/19 11:23 09/06/19 11:23 Labs: Abnormal Lab Results - Last 24 Hours (Table) 09/05/19 09/05/19 09/05/19 Range/Units 06:46 12:10 16:33 POC Glucose (mg/dL) 132 H 116 H 128 H (75-99) mg/dL 09/05/19 Range/Units 19:28 POC Glucose (mg/dL) 128 H (75-99) mg/dL Microbiology - Last 24 Hours (Table) 09/03/19 13:24 Blood Culture - Preliminary Blood No Growth after 48 hours Assessment and Plan Assessment: Acute COPD exacerbation due to tracheobronchitis. Nasal congestion, cough and subjective fevers at home due to acute viral illness. Influenza negative. Possible pneumonia/pneumonitis with prominent peribronchial lung markings Leukocytosis with WBC count 15.6 Previous history of smoking DVT prophylaxis Plan: Patient will be continued on IV steroids, DuoNeb's and antibiotics in the form of ceftriaxone and azithromycin. Influenza A and B-. Rule out viral infection. Continue to follow closely and further recommendations based on the clinical course. Pulmonary was consulted. Patient follows with Dr. Wise as an outpatient. Time with Patient: Greater than 30
--- NOTE | 2019-09-06 23:22 | P.PN ---
Subjective Progress Note Date: 09/06/19 Principal diagnosis: Acute asthma exacerbation Acute tracheobronchitis possible viral. Patient is a 33-year-old male with a known history of asthma, previous history of smoking quit several years ago came to ER with complaints of shortness of breath, cough and nasal congestion and low-grade fever since yesterday. Patient does have cough without sputum production. No complaints of chest pain. No nausea vomiting or abdominal pain. Denied any diarrhea. Otherwise patient denied any sick contacts at home. No recent history of travel. No headache or dizziness or lightheadedness. Patient presented to ER due to worsening shortness of breath. Influenza A and B- WBC 15.6 Bicarb 31 Chest x-ray showed coarsened and prominent perihilar lung markings. Consider bronchitis or atypical pneumonia. Patient was tachycardic with heart rate in 120s on admission. Afebrile while in the hospital. 09/04/2019 Patient denied any complaints of chest pain. Still having shortness of breath and wheezing and exertional dyspnea. Patient has been afebrile. Does have leukocytosis likely due to IV steroids. Pending covid19 test. Patient is being continued on IV steroids, DuoNeb's. We will repeat chest x-ray tomorrow and follow closely. Continue with droplet and contact precautions. No nausea vomiting or abdominal pain or diarrhea. September 05 2019 Patient says that he still having exertional dyspnea. Slight improvement compared to yesterday. Currently being continued on IV steroids and DuoNeb's area Pulmicort was added. No fever no chills. Patient does have cough without sputum production. No complaints of chest pain. Repeat chest x-ray showed no acute pulmonary proc ess. 09/06/2019 Patient is currently lying in the bed comfortably. Shortness of breath is much improved. No complaints of chest pain. Oxygen will be titrated to room air. No fever no chills. Continued on IV steroids and DuoNeb's and antibiotics. Anticipate discharge in the next 24 hours with marked clinical improvement and awaiting for COVID 19 test. Current medications reviewed. Objective - Vital Signs Vital signs: Vital Signs Temp 97.7 F 09/06/19 20:43 Pulse 100 09/06/19 20:52 Resp 17 09/06/19 20:43 BP 141/75 09/06/19 20:43 Pulse Ox 98 09/06/19 20:43 Intake & Output 09/06/19 09/06/19 09/07/19 06:59 18:59 06:59 Intake Total 1000 Balance 1000 Intake: Oral 400 Other 600 Other: Voiding Method Toilet Toilet Toilet # Voids 2 1 - Exam PHYSICAL EXAMINATION: Patient is lying in the bed comfortably, no acute distress, awake alert and oriented.. HEENT: Normocephalic. Neck is supple. Pupils reactive. Nostrils clear. Oral cavity is moist. Ears reveal no drainage. Neck reveals no JVD, carotid bruits, or thyromegaly. CHEST EXAMINATION: Trachea is central. Symmetrical expansion. Bilateral expiratory diffuse wheezing and scattered rhonchi. . CARDIAC: Normal S1, S2 with no gallops. No murmurs ABDOMEN: Soft. Bowel sounds normal. No organomegaly. No abdominal bruits. Extremities: reveal no edema. No clubbing or cyanosis Neurologically awake, alert, oriented x3 with well-coordinated movements. No focal deficits noted Skin: No rash or skin lesions. Psychiatric: Coperative. Nonsuicidal Musculoskeletal: No joint swelling or deformity. Normal range of motion. - Labs CBC & Chem 7: 09/06/19 11:23 09/06/19 11:23 Labs: Abnormal Lab Results - Last 24 Hours (Table) 09/06/19 09/06/19 09/06/19 Range/Units 07:32 11:23 11:23 WBC 15.1 H (3.8-10.6) k/uL Neutrophils # 13.6 H (1.3-7.7) k/uL Lymphocytes # 0.6 L (1.0-4.8) k/uL BUN 21 H (9-20) mg/dL Glucose 122 H (74-99) mg/dL POC Glucose (mg/dL) 149 H (75-99) mg/dL 09/06/19 09/06/19 09/06/19 Range/Units 11:51 16:56 20:27 WBC (3.8-10.6) k/uL Neutrophils # (1.3-7.7) k/uL Lymphocytes # (1.0-4.8) k/uL BUN (9-20) mg/dL Glucose (74-99) mg/dL POC Glucose (mg/dL) 132 H 116 H 133 H (75-99) mg/dL Microbiology - Last 24 Hours (Table) 09/03/19 13:24 Blood Culture - Preliminary Blood No Growth after 72 hours Assessment and Plan Assessment: Acute COPD exacerbation due to tracheobronchitis. Nasal congestion, cough and subjective fevers at home due to acute viral illness. Influenza negative. Possible pneumonia/pneumonitis with prominent peribronchial lung markings Leukocytosis with WBC count 15.6 Previous history of smoking DVT prophylaxis Plan: Patient will be continued on IV steroids, DuoNeb's and antibiotics in the form of ceftriaxone and azithromycin. Influenza A and B-. Rule out viral infection. Continue to follow closely and further recommendations based on the clinical course. Pulmonary was consulted. Patient follows with Dr. Wise as an outpatient. Time with Patient: Greater than 30
[2019-09-07] MEDS: methylPREDNISolone SOD SUCCI 125 MG/2 ML VIAL IV SCH ×3 (04:53→17:41)
[2019-09-07 05:04] VITALS: RESP 18
[2019-09-07 07:04] LABS: Glucose,Whole Blood 160 mg/dL (75-99)
[2019-09-07] MEDS: BUDESONIDE 0.5 MG/2 ML NEBU INHALATION SCH ×2 (08:01→20:44)
[2019-09-07] MEDS: IPRATROPIUM-ALBUTEROL 3 ML NEB INHALATION PRN ×3 (08:01→16:25)
[2019-09-07] MEDS: HEPARIN SODIUM,PORCINE 5,000 UNIT/ML 1 ML VIAL SQ SCH ×3 (08:33→23:18)
[2019-09-07] MEDS: guaiFENesin 600 MG TABLET.ER PO SCH ×2 (08:34→20:23)
[2019-09-07] MEDS: INSULIN ASPART (NovoLOG) 100 UNIT/ML VIAL SQ SCH ×4 (08:34→21:20)
[2019-09-07] MEDS: FAMOTIDINE 20 MG TAB PO SCH ×2 (08:34→20:23)
--- NOTE | 2019-09-07 11:11 | P.PN ---
Subjective Progress Note Date: 09/07/19 Principal diagnosis: Interstitial pneumonia Acute asthma exacerbation History of COPD Chronic intermittent asthma has been stable off of therapy COVID 19 test pending 09/07/2019, patient seen and evaluated examined during the rounds labs reviewed medications reviewed, remains afebrile with oxygen saturation of 93%, hemodynamic status stable, breathing comfortably, still have bilateral wheezing, viral testing is still pending, if remains stable can be discharged home with the home quarantine until test results are available 09/06/2019, shortness breath cough wheezing significantly improved denies any chest pain, breathing is better, covid19 pending, patient can be discharged once test results are available from pulmonary standpoint depending upon testing results Objective - Vital Signs Vital signs: Vital Signs Temp 97.6 F 09/07/19 07:11 Pulse 84 09/07/19 08:18 Resp 18 09/07/19 07:11 BP 139/81 09/07/19 07:11 Pulse Ox 93 L 09/07/19 07:11 Intake & Output 09/06/19 09/07/19 09/07/19 18:59 06:59 18:59 Intake Total 1000 600 Balance 1000 600 Intake: Oral 400 Other 600 600 Other: Voiding Method Toilet Toilet Toilet # Voids 1 1 - Exam - Constitutional General appearance: average body habitus, cooperative - EENT Eyes: normal appearance ENT: normal oropharynx Ears: bilateral: normal - Neck Carotids: bilateral: upstroke normal Thyroid: bilateral: normal size - Respiratory Respiratory: bilateral: wheezing (Bilateral inspiratory expiratory), prolonged expiration, negative: CTA, diminished, dullness, rales, rhonchi - Cardiovascular Rhythm: regular Heart sounds: normal: S1, S2 - Gastrointestinal General gastrointestinal: soft - Integumentary Integumentary: normal turgor - Neurologic Neurologic: CNII-XII intact - Musculoskeletal Musculoskeletal: gait normal, generalized weakness, strength equal bilaterally - Psychiatric Psychiatric: A&O x's 3, appropriate affect, intact judgment & insight - Labs CBC & Chem 7: 09/06/19 11:23 09/06/19 11:23 Labs: Abnormal Lab Results - Last 24 Hours (Table) 09/06/19 09/06/19 09/06/19 Range/Units 11:23 11:23 11:51 WBC 15.1 H (3.8-10.6) k/uL Neutrophils # 13.6 H (1.3-7.7) k/uL Lymphocytes # 0.6 L (1.0-4.8) k/uL BUN 21 H (9-20) mg/dL Glucose 122 H (74-99) mg/dL POC Glucose (mg/dL) 132 H (75-99) mg/dL 09/06/19 09/06/19 09/07/19 Range/Units 16:56 20:27 06:57 WBC (3.8-10.6) k/uL Neutrophils # (1.3-7.7) k/uL Lymphocytes # (1.0-4.8) k/uL BUN (9-20) mg/dL Glucose (74-99) mg/dL POC Glucose (mg/dL) 116 H 133 H 160 H (75-99) mg/dL Microbiology - Last 24 Hours (Table) 09/03/19 13:24 Blood Culture - Preliminary Blood No Growth after 72 hours Assessment and Plan Assessment: Interstitial pneumonia Acute asthma exacerbation History of COPD Chronic intermittent asthma has been stable off of therapy Plan: Continue bronchodilators IV steroids with broad-spectrum antibiotics Time with Patient: Greater than 30
[2019-09-07 11:59] LABS: Glucose,Whole Blood 110 mg/dL (75-99)
[2019-09-07] MEDS: AZITHROMYCIN 500 MG TAB PO SCH (12:53)
[2019-09-07 16:08] LABS: Glucose,Whole Blood 126 mg/dL (75-99)
--- NOTE | 2019-09-07 19:07 | P.PN ---
Progress Note - Text Progress Note Date: 09/07/19 Presenting complaint: Short of breath Interval history: 33-year-old patient of Dr. Jane Dow. Presented with shortness of breath. History of asthma. Ex-smoker. Presented with shortness of breath, cough, nasal congestion low-grade fever For one day. Patient's lab is pending COVID- 19 Today-cough is present. No fever. Appetite is good. Some shortness of breath. Slight headache. Review of systems: Was done for constitutional, cardiovascular, GI, pulmonary. relevant finding as above Active Medications Acetaminophen (Tylenol Tab) 650 mg PO Q6HR PRN PRN Reason: Mild Pain or Fever > 100.5 Last Admin: 09/06/19 20:33 Dose: 650 mg Documented by: Albuterol/Ipratropium (Duoneb 0.5 Mg-3 Mg/3 Ml Soln) 3 ml INHALATION RT-Q4H PRN PRN Reason: Shortness Of Breath Or Wheezing Last Admin: 09/07/19 16:25 Dose: 3 ml Documented by: Azithromycin (Zithromax) 500 mg PO Q24H [facility] Last Admin: 09/07/19 12:53 Dose: 500 mg Documented by: Budesonide (Pulmicort) 0.5 mg INHALATION RT-BID [facility] Last Admin: 09/07/19 08:01 Dose: 0.5 mg Documented by: Famotidine (Pepcid) 20 mg PO BID [facility] Last Admin: 09/07/19 08:34 Dose: 20 mg Documented by: Guaifenesin (Mucinex) 1,200 mg PO Q12HR [facility] Last Admin: 09/07/19 08:34 Dose: 1,200 mg Documented by: Heparin Sodium (Porcine) (Heparin) 5,000 unit SQ Q8HR [facility] Last Admin: 09/07/19 17:40 Dose: 5,000 unit Documented by: Ceftriaxone Sodium 1 gm/ (Sodium Chloride) 50 mls @ 100 mls/hr IVPB Q24H [facility] Last Admin: 09/07/19 12:54 Dose: 100 mls/hr Documented by: Ibuprofen (Motrin) 400 mg PO Q6HR PRN PRN Reason: Mild Pain or Fever > 100.5 Last Admin: 09/04/19 12:23 Dose: 400 mg Documented by: Insulin Aspart (Novolog) 0 unit SQ ACHS [facility]; Protocol Last Admin: 09/07/19 16:33 Dose: Not Given Documented by: Ketorolac Tromethamine (Toradol) 30 mg IVP Q6HR PRN PRN Reason: Moderate Pain Stop: 09/08/19 13:18 Methylprednisolone Sodium Succinate (Solu-Medrol) 60 mg IV Q6HR [facility] Last Admin: 09/07/19 17:41 Dose: 60 mg Documented by: Naloxone HCl (Narcan) 0.2 mg IV Q2M PRN PRN Reason: Opioid Reversal Ondansetron HCl (Zofran) 4 mg IVP Q8HR PRN PRN Reason: Nausea And Vomiting On examination: VITAL SIGNS: 98.5, 75, 18, blood pressure 138/77, 95% on room air GENERAL APPEARANCE: Sitting up on the bed, eating. HEENT: Normal external appearance of nose and ear. Oral cavity normal EYES: Pupils equal. Conjunctiva normal. NECK: JVD not raised. Mass not palpable. RESPIRATORY: Respiratory effort increased. Mild wheezing. CARDIOVASCULAR: First and second sounds normal. No edema. ABDOMEN: Soft. Liver and spleen not palpable. No tenderness. No mass palpable. PSYCHIATRY: Alert and oriented x3. Mood and affect normal. INVESTIGATIONS, reviewed in the clinical context: Accu-Cheks noted Previous testing: White count 15.1 hemoglobin 13.2 potassium 4.8 creatinine 0.69 Chest x-ray-no infiltrates Assessment: -Acute intermittent asthma with acute exacerbation -Interstitial pneumonia upper pulmonary -Leukocytosis from steroids -Pending testing on COVID-19 Plan: Continue patient on bronchodilators, inhaled steroids IV ceftriaxone IV Solu- Medrol. Change bronchodilators [id number]. Discussed with patient.
[2019-09-07 20:27] LABS: Glucose,Whole Blood 128 mg/dL (75-99)
[2019-09-07] MEDS: IPRATROPIUM-ALBUTEROL 3 ML NEB INHALATION SCH ×2 (20:44→20:51)
[2019-09-07] MEDS: methylPREDNISolone SOD SUCCI 40 MG/ML 1 ML VIAL IV SCH (23:16)
[2019-09-08] MEDS: IPRATROPIUM-ALBUTEROL 3 ML NEB INHALATION SCH ×6 (00:18→19:20)
[2019-09-08] MEDS: BUDESONIDE 0.5 MG/2 ML NEBU INHALATION SCH ×2 (07:09→19:20)
[2019-09-08 07:12] LABS: Glucose,Whole Blood 145 mg/dL (75-99)
[2019-09-08 08:49] LABS: African American GFR (CKD) >90 (>60 ml/min/1.73 sqM); Anion Gap 14 mmol/L; Blood Urea Nitrogen 18 mg/dL (9-20); Calcium 9.3 mg/dL (8.4-10.2); Carbon Dioxide 23 mmol/L (22-30); Chloride 101 mmol/L (98-107); Glucose 192 mg/dL (74-99); Non-African American GFR(CKD) >90 (>60 ml/min/1.73 sqM); Potassium 4.2 mmol/L (3.5-5.1); Sodium 138 mmol/L (137-145)
[2019-09-08 09:06] LABS: Basophils % (A) 0 %; Eosinophils % (A) 0 %; HCT 46.3 % (39.0-53.0); HGB 15.2 gm/dL (13.0-17.5); Lymphocytes # (A) 0.8 k/uL (1.0-4.8); Lymphocytes % (A) 7 %; MCH 29.2 pg (25.0-35.0); MCHC 32.8 g/dL (31.0-37.0); MCV 89.2 fL (80.0-100.0); Mean Platelet Volume 8.1; Monocytes # (A) 0.4 k/uL (0-1.0); Monocytes % (A) 3 %; Neutrophils # (A) 10.6 k/uL (1.3-7.7); Neutrophils % (A) 89 %; Platelet Count 242 k/uL (150-450); RBC 5.19 m/uL (4.30-5.90); RDW 12.1 % (11.5-15.5); WBC 11.9 k/uL (3.8-10.6)
[2019-09-08] MEDS: HEPARIN SODIUM,PORCINE 5,000 UNIT/ML 1 ML VIAL SQ SCH ×3 (09:25→23:58)
[2019-09-08] MEDS: INSULIN ASPART (NovoLOG) 100 UNIT/ML VIAL SQ SCH ×4 (09:25→21:10)
[2019-09-08] MEDS: guaiFENesin 600 MG TABLET.ER PO SCH ×2 (09:25→21:06)
[2019-09-08] MEDS: FAMOTIDINE 20 MG TAB PO SCH ×2 (09:25→21:09)
[2019-09-08] MEDS: methylPREDNISolone SOD SUCCI 40 MG/ML 1 ML VIAL IV SCH ×2 (09:25→14:56)
[2019-09-08] MEDS: AZITHROMYCIN 500 MG TAB PO SCH (09:26)
--- NOTE | 2019-09-08 11:06 | P.PN ---
Subjective Progress Note Date: 09/08/19 Principal diagnosis: Interstitial pneumonia Acute asthma exacerbation History of COPD Chronic intermittent asthma has been stable off of therapy COVID 19 test pending 09/08/2019, patient seen and evaluated examined during the rounds labs reviewed medications reviewed, viral testing still pending, wheezing have improved now, and denies any chest pain patient remains on antibiotics breathing treatments and IV steroids, white cell count continue to improve, sugars running higher side due to high-dose steroid, can be changed to oral Medrol Dosepak in the time of discharge 09/07/2019, patient seen and evaluated examined during the rounds labs reviewed medications reviewed, remains afebrile with oxygen saturation of 93%, hemodynamic status stable, breathing comfortably, still have bilateral wheezing, viral testing is still pending, if remains stable can be discharged home with the home quarantine until test results are available 09/06/2019, shortness breath cough wheezing significantly improved denies any chest pain, breathing is better, covid19 pending, patient can be discharged once test results are available from pulmonary standpoint depending upon testing re sults Objective - Vital Signs Vital signs: Vital Signs Temp 97.9 F 09/08/19 07:00 Pulse 92 09/08/19 07:23 Resp 18 09/08/19 07:00 BP 128/72 09/08/19 07:00 Pulse Ox 100 09/08/19 07:00 Intake & Output 09/07/19 09/08/19 09/08/19 18:59 06:59 18:59 Intake Total 600 480 Balance 600 480 Intake: Oral 480 Other 600 Other: Voiding Method Toilet Toilet Toilet # Voids 1 - Exam - Constitutional General appearance: average body habitus, cooperative - EENT Eyes: normal appearance ENT: normal oropharynx Ears: bilateral: normal - Neck Carotids: bilateral: upstroke normal Thyroid: bilateral: normal size - Respiratory Respiratory: bilateral: wheezing (Bilateral inspiratory expiratory), prolonged expiration, negative: CTA, diminished, dullness, rales, rhonchi - Cardiovascular Rhythm: regular Heart sounds: normal: S1, S2 - Gastrointestinal General gastrointestinal: soft - Integumentary Integumentary: normal turgor - Neurologic Neurologic: CNII-XII intact - Musculoskeletal Musculoskeletal: gait normal, generalized weakness, strength equal bilaterally - Psychiatric Psychiatric: A&O x's 3, appropriate affect, intact judgment & insight - Labs CBC & Chem 7: 09/08/19 08:21 09/08/19 08:21 Labs: Abnormal Lab Results - Last 24 Hours (Table) 09/07/19 09/07/19 09/07/19 Range/Units 11:53 16:07 20:16 WBC (3.8-10.6) k/uL Neutrophils # (1.3-7.7) k/uL Lymphocytes # (1.0-4.8) k/uL Glucose (74-99) mg/dL POC Glucose (mg/dL) 110 H 126 H 128 H (75-99) mg/dL 09/08/19 09/08/19 09/08/19 Range/Units 07:11 08:21 08:21 WBC 11.9 H (3.8-10.6) k/uL Neutrophils # 10.6 H (1.3-7.7) k/uL Lymphocytes # 0.8 L (1.0-4.8) k/uL Glucose 192 H (74-99) mg/dL POC Glucose (mg/dL) 145 H (75-99) mg/dL Microbiology - Last 24 Hours (Table) 09/03/19 13:24 Blood Culture - Preliminary Blood No Growth after 96 hours Assessment and Plan Assessment: Interstitial pneumonia Acute asthma exacerbation History of COPD Chronic intermittent asthma has been stable off of therapy Plan: Continue bronchodilators IV steroids with broad-spectrum antibiotics, can be changed to oral at the time of discharge
[2019-09-08 12:00] LABS: Glucose,Whole Blood 103 mg/dL (75-99)
[2019-09-08 16:54] LABS: Glucose,Whole Blood 113 mg/dL (75-99)
--- NOTE | 2019-09-08 20:57 | P.PN ---
Progress Note - Text Progress Note Date: 09/08/19 Presenting complaint: Short of breath Interval history: 33-year-old patient of Dr. Jane Dow. Presented with shortness of breath. History of asthma. Ex-smoker. Presented with shortness of breath, cough, nasal congestion low-grade fever For one day. Today-feels much improved today. Decreased cough. No sputum. Eating well. No fever or chills. Has been exercising and comorbid. Does get tired. COVID 19 results pending Review of systems: Was done for constitutional, cardiovascular, GI, pulmonary. relevant finding as above Active Medications Acetaminophen (Tylenol Tab) 650 mg PO Q6HR PRN PRN Reason: Mild Pain or Fever > 100.5 Last Admin: 09/06/19 20:33 Dose: 650 mg Documented by: Albuterol/Ipratropium (Duoneb 0.5 Mg-3 Mg/3 Ml Soln) 3 ml INHALATION RT-Q4H PRN PRN Reason: Shortness Of Breath Or Wheezing Last Admin: 09/07/19 16:25 Dose: 3 ml Documented by: Albuterol/Ipratropium (Duoneb 0.5 Mg-3 Mg/3 Ml Soln) 3 ml INHALATION RT-Q4H [facility] Last Admin: 09/08/19 19:20 Dose: 3 ml Documented by: Azithromycin (Zithromax) 500 mg PO Q24H [facility] Last Admin: 09/08/19 09:26 Dose: 500 mg Documented by: Budesonide (Pulmicort) 0.5 mg INHALATION RT-BID [facility] Last Admin: 09/08/19 19:20 Dose: 0.5 mg Documented by: Famotidine (Pepcid) 20 mg PO BID [facility] Last Admin: 09/08/19 09:25 Dose: 20 mg Documented by: Guaifenesin (Mucinex) 1,200 mg PO Q12HR [facility] Last Admin: 09/08/19 09:25 Dose: 1,200 mg Documented by: Heparin Sodium (Porcine) (Heparin) 5,000 unit SQ Q8HR [facility] Last Admin: 09/08/19 14:56 Dose: 5,000 unit Documented by: Ceftriaxone Sodium 1 gm/ (Sodium Chloride) 50 mls @ 100 mls/hr IVPB Q24H [facility] Last Admin: 09/08/19 14:56 Dose: 100 mls/hr Documented by: Ibuprofen (Motrin) 400 mg PO Q6HR PRN PRN Reason: Mild Pain or Fever > 100.5 Last Admin: 09/04/19 12:23 Dose: 400 mg Documented by: Insulin Aspart (Novolog) 0 unit SQ ACHS [facility]; Protocol Last Admin: 09/08/19 17:15 Dose: Not Given Documented by: Methylprednisolone Sodium Succinate (Solu-Medrol) 40 mg IV Q8HR [facility] Last Admin: 09/08/19 14:56 Dose: 40 mg Documented by: Naloxone HCl (Narcan) 0.2 mg IV Q2M PRN PRN Reason: Opioid Reversal Ondansetron HCl (Zofran) 4 mg IVP Q8HR PRN PRN Reason: Nausea And Vomiting On examination: VITAL SIGNS: 98.2, 95, 18, blood pressure 143/84, 93% on room air GENERAL APPEARANCE: Sitting up on the bed, comfortable HEENT: Normal external appearance of nose and ear. Oral cavity normal EYES: Pupils equal. Conjunctiva normal. NECK: JVD not raised. Mass not palpable. RESPIRATORY: Respiratory effort increased. Improved air entry CARDIOVASCULAR: First and second sounds normal. No edema. ABDOMEN: Soft. Liver and spleen not palpable. No tenderness. No mass palpable. PSYCHIATRY: Alert and oriented x3. Mood and affect normal. INVESTIGATIONS, reviewed in the clinical context: White count 11.9 hemoglobin 16.2 potassium 4.2 creatinine 0.80 Previous testing: White count 15.1 hemoglobin 13.2 potassium 4.8 creatinine 0.69 Chest x-ray-no infiltrates Assessment: -Acute intermittent asthma with acute exacerbation-significantly improved -Interstitial pneumonia upper pulmonary -Leukocytosis from steroids -Pending testing on COVID-19 Plan: Patient is significantly improved. Cut back the dose of IV Solu-Medrol on IV ceftriaxone DuoNeb. Cut back frequency of DuoNeb.
[2019-09-08 21:03] LABS: Glucose,Whole Blood 110 mg/dL (75-99)
[2019-09-08] MEDS: IPRATROPIUM-ALBUTEROL 3 ML NEB INHALATION PRN (23:33)
[2019-09-09 06:49] LABS: Glucose,Whole Blood 85 mg/dL (75-99)
[2019-09-09 07:05] VITALS: BP 119/84; TEMP 97.9
[2019-09-09] MEDS ORDERED: methylPREDNISolone SOD SUCCI 125 MG/2 ML VIAL IV SCH (08:00)
[2019-09-09] MEDS: INSULIN ASPART (NovoLOG) 100 UNIT/ML VIAL SQ SCH ×2 (08:11→11:29)
[2019-09-09] MEDS: HEPARIN SODIUM,PORCINE 5,000 UNIT/ML 1 ML VIAL SQ SCH (08:11)
[2019-09-09] MEDS: BUDESONIDE 0.5 MG/2 ML NEBU INHALATION SCH (08:14)
[2019-09-09] MEDS: IPRATROPIUM-ALBUTEROL 3 ML NEB INHALATION SCH ×2 (08:14→11:14)
[2019-09-09] MEDS: guaiFENesin 600 MG TABLET.ER PO SCH (08:24)
[2019-09-09] MEDS: AZITHROMYCIN 500 MG TAB PO SCH (08:24)
[2019-09-09] MEDS: FAMOTIDINE 20 MG TAB PO SCH (08:24)
--- NOTE | 2019-09-09 10:19 | P.PN ---
Subjective Progress Note Date: 09/09/19 Principal diagnosis: Interstitial pneumonia Acute asthma exacerbation History of COPD Chronic intermittent asthma has been stable off of therapy COVID 19 test pending 09/09/2019, patient seen eval reexamined during the rounds overall respiratory status has been negative his Covid 19 is negative, patient is being discharged from pulmonary and medical standpoint, his prescription for albuterol nebulizer medicine given 09/08/2019, patient seen and evaluated examined during the rounds labs reviewed medications reviewed, viral testing still pending, wheezing have improved now, and denies any chest pain patient remains on antibiotics breathing treatments and IV steroids, white cell count continue to improve, sugars running higher side due to high-dose steroid, can be changed to oral Medrol Dosepak in the time of discharge 09/07/2019, patient seen and evaluated examined during the rounds labs reviewed medications reviewed, remains afebrile with oxygen saturation of 93%, hemodynamic status stable, breathing comfortably, still have bilateral wheezing, viral testing is still pending, if remains stable can be discharged home with the home quarantine until test results are available 09/06/2019, shortness breath cough wheezing significantly improved denies any chest pain, breathing is better, covid19 pending, patient can be discharged once test results are available from pulmonary standpoint depending upon testing results Objective - Vital Signs Vital signs: Vital Signs Temp 97.9 F 09/09/19 07:00 Pulse 88 09/09/19 08:27 Resp 18 09/09/19 08:00 BP 119/84 09/09/19 07:00 Pulse Ox 97 09/09/19 07:00 Intake & Output 09/08/19 09/09/19 09/09/19 18:59 06:59 18:59 Intake Total 480 1120 Balance 480 1120 Intake: Oral 480 520 Other 600 Other: Voiding Method Toilet Toilet Toilet # Voids 1 - Exam - Constitutional General appearance: average body habitus, cooperative - EENT Eyes: normal appearance ENT: normal oropharynx Ears: bilateral: normal - Neck Carotids: bilateral: upstroke normal Thyroid: bilateral: normal size - Respiratory Respiratory: bilateral: wheezing (Bilateral inspiratory expiratory), prolonged expiration, negative: CTA, diminished, dullness, rales, rhonchi - Cardiovascular Rhythm: regular Heart sounds: normal: S1, S2 - Gastrointestinal General gastrointestinal: soft - Integumentary Integumentary: normal turgor - Neurologic Neurologic: CNII-XII intact - Musculoskeletal Musculoskeletal: gait normal, generalized weakness, strength equal bilaterally - Psychiatric Psychiatric: A&O x's 3, appropriate affect, intact judgment & insight - Labs CBC & Chem 7: 09/08/19 08:21 09/08/19 08:21 Labs: Abnormal Lab Results - Last 24 Hours (Table) 09/08/19 09/08/19 09/08/19 Range/Units 11:58 16:52 21:01 POC Glucose (mg/dL) 103 H 113 H 110 H (75-99) mg/dL Microbiology - Last 24 Hours (Table) 09/03/19 13:24 Blood Culture - Preliminary Blood No Growth after 120 hours Assessment and Plan Assessment: Interstitial pneumonia Acute asthma exacerbation History of COPD Chronic intermittent asthma has been stable off of therapy Plan: Continue bronchodilators IV steroids with broad-spectrum antibiotics, can be changed to oral at the time of discharge Time with Patient: Greater than 30
[2019-09-09 11:29] VITALS: PULSE 88
--- NOTE | 2019-09-09 23:50 | P.DS ---
Providers Date of admission: 09/05/19 15:18 Expected date of discharge: 09/09/19 Attending physician: Reji Yancey Consults: 09/04/19 13:09 Consult Physician Routine Consulting Provider: Westley Wise Consult Reason/Comments: copd Do you want consulting provider notified?: Yes Primary care physician: Jane Dow [facility] Course: Presenting complaint: Short of breath Interval history: 33-year-old patient of Dr. Jane Dow. Presented with shortness of breath. History of asthma. Ex-smoker. Presented with shortness of breath, cough, nasal congestion low-grade fever For one day. Admitted with asthma exacerbation, pneumonia. Responded well to bronchodilator steroids antibiotics. Today-D much better. Breathing much improved. Eating well. Up and about. COVID-19 came back negative. Discussed with Dr. Christy from pulmonary. Okay to [place]. Consultation: Dr. Westley Wise from pulmonary On examination: VITAL SIGNS: 97.9, 82, 18, blood pressure 100 9284, 97% on room air GENERAL APPEARANCE: Sitting up on the bed, comfortable HEENT: Normal external appearance of nose and ear. Oral cavity normal EYES: Pupils equal. Conjunctiva normal. NECK: JVD not raised. Mass not palpable. RESPIRATORY: Respiratory effort normal. Improved air entry CARDIOVASCULAR: First and second sounds normal. No edema. ABDOMEN: Soft. Liver and spleen not palpable. No tenderness. No mass palpable. PSYCHIATRY: Alert and oriented x3. Mood and affect normal. INVESTIGATIONS, reviewed in the clinical context: White count 11.9 hemoglobin 16.2 potassium 4.2 creatinine 0.80 COVID-90 negative Previous testing: White count 15.1 hemoglobin 13.2 potassium 4.8 creatinine 0.69 Chest x-ray-no infiltrates Assessment: -Acute intermittent asthma with acute exacerbation-significantly improved -Interstitial pneumonia suspect gram-negative organism. -Leukocytosis from steroids - [id number] Disposition: Home Patient Condition at Discharge: Stable Plan - Discharge Summary Discharge Rx Participant: Yes New Discharge Prescriptions: New Albuterol Sulfate [Ventolin HFA] 2 puff INHALATION Q6H PRN #1 inhaler PRN Reason: Shortness Of Breath Beclomethasone Dip 80 Mcg/Puff [Qvar] 2 puff INHALATION BID #1 puff Cefuroxime Axetil [Ceftin] 500 mg PO BID 3 Days #6 tab Tiotropium 18 Mcg/Puff [Spiriva] 1 puff INHALATION DAILY #1 device Albuterol Inhaler [Ventolin Hfa Inhaler] 1 - 2 puff INHALATION RT-Q6H PRN #1 inhaler PRN Reason: Wheezing predniSONE 10 mg PO DAILY #30 tab Beclomethasone Dip 80 Mcg/Puff [Qvar] 1 puff INHALATION BID #1 puff Continue Famotidine 40 mg PO DAILY Discharge Medication List Famotidine 40 mg PO DAILY 09/03/19 [History] Albuterol Sulfate [Ventolin HFA] 2 puff INHALATION Q6H PRN #1 inhaler 09/06/19 [Rx] Beclomethasone Dip 80 Mcg/Puff [Qvar] 2 puff INHALATION BID #1 puff 09/06/19 [Rx] Albuterol Inhaler [Ventolin Hfa Inhaler] 1 - 2 puff INHALATION RT-Q6H PRN #1 inhaler 09/09/19 [Rx] Beclomethasone Dip 80 Mcg/Puff [Qvar] 1 puff INHALATION BID #1 puff 09/09/19 [Rx] Cefuroxime Axetil [Ceftin] 500 mg PO BID 3 Days #6 tab 09/09/19 [Rx] Tiotropium 18 Mcg/Puff [Spiriva] 1 puff INHALATION DAILY #1 device 09/09/19 [Rx] predniSONE 10 mg PO DAILY #30 tab 09/09/19 [Rx] Follow up Appointment(s)/Referral(s): Jane Dow DO [Primary Care Provider] - 3 Days Westley Wise MD [STAFF PHYSICIAN] - 1 Week Discharge Disposition: HOME SELF-CARE
== END 2019-09-09 12:30 | disposition home or self-care (01) | DRG 202 ==
LOC: EC 09:47 → 1SOBS 13:17 → OBSVTOIN 09-05 15:18 → 1SOBS 09-07 22:41
PROVIDERS: ADMIT Hospitalist; ATTEND Hospitalist
DX: J45.21 Mild intermittent asthma with (acute) exacerbation (principal); J44.0 Chronic obstructive pulmonary disease with (acute) lower respiratory infection; J84.89 Other specified interstitial pulmonary diseases; T38.0X5A Adverse effect of glucocorticoids and synthetic analogues, initial encounter; Z20.828 Contact with and (suspected) exposure to other viral communicable diseases; Z82.49 Family history of ischemic heart disease and other diseases of the circulatory system; Z87.891 Personal history of nicotine dependence; Z91.011 Allergy to milk products
CPT/HCPCS: 36415; 71045; 71046; 80048; 80053; 85025; 87040; 87502; 94640; 96361; 96365; 96367; 99285

== ENCOUNTER 2021-05-08 15:30 | Emergency (ER) | payer BC, OTHER ==
[2021-05-08 16:09] VITALS: BP 117/75; PULSE 79; RESP 20; TEMP 98.4
[2021-05-08] MEDS ORDERED: SODIUM CHLORIDE 0.9% 1,000 ML IV STA (16:25)
[2021-05-08 16:47] LABS: Basophils % (A) 1 %; Eosinophils # (A) 0.4 k/uL (0-0.7); Eosinophils % (A) 4 %; HCT 47.3 % (39.0-53.0); HGB 15.8 gm/dL (13.0-17.5); Lymphocytes % (A) 23 %; MCHC 33.4 g/dL (31.0-37.0); Monocytes # (A) 0.4 k/uL (0-1.0); Monocytes % (A) 5 %; Neutrophils # (A) 5.9 k/uL (1.3-7.7); Neutrophils % (A) 67 %; Platelet Count 222 k/uL (150-450); RBC 5.44 m/uL (4.30-5.90); RDW 11.7 % (11.5-15.5); WBC 8.9 k/uL (3.8-10.6)
[2021-05-08 16:49] LABS: Appearance,Urine Clear (Clear); Bilirubin,Urine Negative (Negative); Blood,Urine Negative (Negative); Color,Urine Light Yellow; Glucose,Urine (UA) Negative (Negative); Ketones,Urine Negative (Negative); Leukocyte Esterase,Urine Negative (Negative); Nitrite,Urine Negative (Negative); PH, Urine 5.5 (5.0-8.0); Protein,Urine Negative (Negative); Specific Gravity,Urine 1.015 (1.001-1.035); Urobilinogen,Urine <2.0 mg/dL (<2.0)
[2021-05-08 17:00] LABS: ALT 33 U/L (4-49); AST 33 U/L (17-59); African American GFR (CKD) >90 (>60 ml/min/1.73 sqM); Albumin 4.7 g/dL (3.5-5.0); Alkaline Phosphatase 71 U/L (38-126); Amylase 87 U/L (30-110); Anion Gap 11 mmol/L; Blood Urea Nitrogen 18 mg/dL (9-20); Calcium 9.4 mg/dL (8.4-10.2); Carbon Dioxide 27 mmol/L (22-30); Chloride 100 mmol/L (98-107); Glucose 97 mg/dL (74-99); Lipase 84 U/L (23-300); Non-African American GFR(CKD) >90 (>60 ml/min/1.73 sqM); Potassium 4.2 mmol/L (3.5-5.1); Sodium 138 mmol/L (137-145); Total Bilirubin 0.4 mg/dL (0.2-1.3); Total Protein 7.3 g/dL (6.3-8.2)
--- NOTE | 2021-05-08 17:09 | XR ---
EXAMINATION TYPE: XR KUB DATE OF EXAM: 05/08/2021 4:51 PM CLINICAL HISTORY: Abdominal pain, nausea. TECHNIQUE: Upright images of the abdomen and pelvis were obtained COMPARISON: 11/24/2017. FINDINGS: Nonspecific bowel gas pattern. No pneumoperitoneum. There is no visceromegaly or abnormal c alcification appreciated. The lung bases are clear. There is prominent superolateral curvature of the femoral heads bilaterally. IMPRESSION: 1. Nonspecific bowel gas pattern. 2. Prominent superolateral curvature of the femoral heads bilaterally. Differential includes MALIHA (fe moral acetabular impingement).
--- NOTE | 2021-05-08 19:58 | CT ---
EXAMINATION TYPE: CT abdomen pelvis w con DATE OF EXAM: 05/08/2021 COMPARISON: None HISTORY: abd pain CT DLP: 924.2 mGycm Automated exposure control for dose reduction was used. TECHNIQUE: Helical acquisition of images was performed from the lung bases through the pelvis. CONTRAST: Performed without Oral Contrast and with IV Contrast, patient injected with 100 mL of Isovue 300. FINDINGS: LUNG BASES: Normal. LIVER: Normal. BILIARY SYSTEM: Gallbladder contracted. PANCREAS: Normal. SPLEEN: Normal. ADRENALS: Normal. KIDNEYS: Normal. BOWEL: No obstruction or thickening. Normal appendix. PERITONEUM: No pneumoperitoneum. No free fluid. LYMPH NODES: No lymphadenopathy. PELVIS: Unremarkable. Urinary bladder nondistended. VASCULATURE: Abdominal aorta normal in caliber. MUSCULOSKELETAL: No acute osseous normality. IMPRESSION: No acute abdominopelvic process.
--- NOTE | 2021-05-08 20:10 | ED ---
Abdominal Pain HPI - General Chief Complaint: Abdominal Pain Stated Complaint: Abdominal Pain Time Seen by Provider: 05/08/21 16:15 Source: patient, RN notes reviewed Mode of arrival: ambulatory Limitations: no limitations - History of Present Illness Initial Comments: Patient is a 35-year-old male that presents to the emergency department complaining of abdominal pain in the lower portion. He has is been going on for 6 months and gradually getting worse. Hetried following his primary care with no results. He notes that he came to the emergency room for evaluation. He denied any other issues or complaint. He denied chest pain short of breath headache nausea vomiting diarrhea constipation fever fatigue chills. - Related Data Home Medications Medication Instructions Recorded Confirmed Albuterol Sulfate [Ventolin HFA] 2 puff INHALATION RT-Q6H PRN 05/08/21 05/08/21 Beclomethasone Dip 80 Mcg/Puff 2 puff INHALATION RT-BID 05/08/21 05/08/21 [Qvar] Tiotropium 18 Mcg/Puff [Spiriva] 1 puff INHALATION RT-DAILY 05/08/21 05/08/21 Allergies Allergy/AdvReac Type Severity Reaction Status Date / Time Milk Containing Products Allergy Swelling Verified 05/08/21 17:56 [Dairy] Review of Systems ROS Statement: Those systems with pertinent positive or pertinent negative responses have been documented in the HPI. ROS Other: All systems not noted in ROS Statement are negative. Past Medical History Past Medical History: COPD History of Any Multi-Drug Resistant Organisms: None Reported Past Surgical History: Orthopedic Surgery Additional Past Surgical History / Comment(s): right elbow Past Psychological History: No Psychological Hx Reported Smoking Status: Current every day smoker Past Alcohol Use History: Occasional Past Drug Use History: Marijuana - Past Family History Mother Family Medical History: Coronary Artery Disease (CAD), Hyperlipidemia, Hypertension Father Family Medical History: Coronary Artery Disease (CAD), Hyperlipidemia, Hypertension, Myocardial Infarction ([place]) General Exam Limitations: no limitations General appearance: alert, in no apparent distress Head exam: Present: atraumatic, normocephalic, normal inspection Eye exam: Present: normal appearance, PERRL, EOMI. Absent: scleral icterus, conjunctival injection, periorbital swelling ENT exam: Present: normal exam, mucous membranes moist Neck exam: Present: normal inspection Respiratory exam: Present: normal lung sounds bilaterally. Absent: respiratory distress, wheezes, rales, rhonchi, stridor Cardiovascular Exam: Present: regular rate, normal rhythm, normal heart sounds. Absent: systolic murmur, diastolic murmur, rubs, gallop, clicks GI/Abdominal exam: Present: soft, normal bowel sounds. Absent: distended, tenderness, guarding, rebound, rigid Extremities exam: Present: normal inspection, full ROM, normal capillary refill. Absent: tenderness, pedal edema, joint swelling, calf tenderness Neurological exam: Present: alert, oriented X3 Psychiatric exam: Present: normal affect, normal mood Skin exam: Present: warm, dry, intact, normal color. Absent: rash Course Vital Signs 05/08/21 16:07 Temperature 98.4 F Pulse Rate 79 Respiratory 20 Rate Blood Pressure 117/75 O2 Sat by Pulse 98 Oximetry Medical Decision Making - Medical Decision Making 35-year-old male with abdominal pain. Labs, KUB, 1 L normal saline. Labs unremarkable. KUB shows nonobstructive bowel gas pattern. Due to continuing pain patient requested a computed tomography scan. Computed tomography scan shows nonacute abdomen. Patient will be given referral to a GI specialist. Case discussed with Dr. Rodriguez, patient can discharge home. - Lab Data Result diagrams: 05/08/21 16:40 05/08/21 16:40 Lab Results 05/08/21 05/08/21 05/08/21 Range/Units 16:40 16:40 16:40 WBC 8.9 (3.8-10.6) k/uL RBC 5.44 (4.30-5.90) m/uL Hgb 15.8 (13.0-17.5) gm/dL Hct 47.3 (39.0-53.0) % MCV 87.0 (80.0-100.0) fL MCH 29.0 (25.0-35.0) pg MCHC 33.4 (31.0-37.0) g/dL RDW 11.7 (11.5-15.5) % Plt Count 222 (150-450) k/uL MPV 8.0 Neutrophils % 67 % Lymphocytes % 23 % Monocytes % 5 % Eosinophils % 4 % Basophils % 1 % Neutrophils # 5.9 (1.3-7.7) k/uL Lymphocytes # 2.0 (1.0-4.8) k/uL Monocytes # 0.4 (0-1.0) k/uL Eosinophils # 0.4 (0-0.7) k/uL Basophils # 0.0 (0-0.2) k/uL Sodium 138 (137-145) mmol/L Potassium 4.2 (3.5-5.1) mmol/L Chloride 100 (98-107) mmol/L Carbon Dioxide 27 (22-30) mmol/L Anion Gap 11 mmol/L BUN 18 (9-20) mg/dL Creatinine 0.92 (0.66-1.25) mg/dL Est GFR (CKD-EPI)AfAm >90 (>60 ml/min/1.73 sqM) Est GFR (CKD-EPI)NonAf >90 (>60 ml/min/1.73 sqM) Glucose 97 (74-99) mg/dL Calcium 9.4 (8.4-10.2) mg/dL Total Bilirubin 0.4 (0.2-1.3) mg/dL AST 33 (17-59) U/L ALT 33 (4-49) U/L Alkaline Phosphatase 71 (38-126) U/L Total Protein 7.3 (6.3-8.2) g/dL Albumin 4.7 (3.5-5.0) g/dL Amylase 87 (30-110) U/L Lipase 84 (23-300) U/L Urine Color Light Yellow Urine Appearance Clear (Clear) Urine pH 5.5 (5.0-8.0) Ur Specific [place] 1.015 (1.001-1.035) Urine Protein Negative (Negative) Urine Glucose (UA) Negative (Negative) Urine Ketones Negative (Negative) Urine Blood Negative (Negative) Urine Nitrite Negative (Negative) Urine Bilirubin Negative (Negative) Urine Urobilinogen <2.0 (<2.0) mg/dL Ur Leukocyte Esterase Negative (Negative) - Radiology Data Radiology results: report reviewed, image reviewed KUB: Nonspecific bowel gas pattern. CT abdomen and pelvis.: No acute abdominal pelvic process. Disposition Clinical Impression: Abdominal pain Disposition: HOME SELF-CARE Condition: Stable Instructions (If sedation given, give patient instructions): Abdominal Pain (ED) Additional Instructions: Please return to the Emergency Department if symptoms worsen or any other concerns. Follow-up with primary care 1-2 days. Follow-up with GI specialist as soon as possible. Is patient prescribed a controlled substance at d/c from ED?: No Referrals: Jane Dow DO [Primary Care Provider] - 1-2 days Trinh Jo MD [STAFF PHYSICIAN] - 1-2 days Time of Disposition: 20:10
== END 2021-05-08 20:20 | disposition home or self-care (01) ==
LOC: EC 15:30
DX: R10.30 Lower abdominal pain, unspecified (principal); J44.9 Chronic obstructive pulmonary disease, unspecified; F17.200 Nicotine dependence, unspecified, uncomplicated; Z79.51 Long term (current) use of inhaled steroids; Z91.011 Allergy to milk products
CPT/HCPCS: 36415; 80053; 82150; 83690; 85025; 81003; 74018; 74177; 99284; Q9967

== ENCOUNTER 2021-05-31 06:09 | Day surgery (SDC) | payer BC ==
[2021-05-30 12:07] VITALS: BMI 24.4
[~2021-05-31 06:09] MED LIST: LACTATED RINGERS 1,000 ML IV SCH
[2021-05-31 06:48] VITALS: RESP 16; TEMP 97.7
[2021-05-31] MEDS ORDERED: LIDOCAINE 1% INJ 10MG/ML (20 ML MDV) ONE (07:05)
[2021-05-31] MEDS ORDERED: PROPOFOL 10 MG/ML 20 ML VIAL IV ONE (07:05)
--- NOTE | 2021-05-31 07:26 | P.PCN ---
Date of Procedure: 05/31/21 Procedure(s) Performed: Brief history: Patient is a pleasant 35-year-old white male scheduled for an elective upper endoscopy as well as colonoscopy as a part of evaluation of GERD, abdominal pain, abdominal bloating and change in bowel habits for the last several months duration Procedure performed: Esophagogastroduodenoscopywith biopsy Colonoscopy Preoperative diagnosis: GERDAbdominal pain, abdominal bloating and change in bowel habits Anesthesia: MAC Procedure: After informed consent was obtained from the patient was brought into the endoscopy unit and IV sedation was administered by anesthesia under continuous monitoring. Initially upper endoscopy was done. The Olympus GF 160 video endos cope was inserted inserted into the mouth and esophagus intubated without any difficulty and was gradually advanced into the stomach and duodenum and carefully examined. The bulb and second part of the duodenum appeared normal. biopsies were done from the duodenum to rule out celiac disease. The scope was then withdrawn into the stomach adequately insufflated with air and upon careful examination the antrum revealed mild diffuse antral gastritis and biopsies were done from this area.The body, cardia and fundus appeared normal. The scope was then withdrawn into the esophagus. The GE junction was located at 45 cm to the incisors. It appeared regular with no erythema erosions or ulcerations. Rest of the esophagus appeared normal. Patient tolerated the procedure well. At this time the patient continued to remain sedation. Initial digital rectal examination was normal. Olympus CF 160 video colonoscope was then inserted into the rectum and gradually advanced to the cecum without any difficulty. Careful examination was performed as the scope was gradually being withdrawn. The prep was excellent. terminal ileum was intubated and 20 cm visualized and appeared normal.The cecum, ascending colon, transverse colon, descending colon, sigmoid colon and rectum appeared normal. Retroflexion was performed in the rectum and no lesions were noted. Patient tolerated the procedure well. Impression: 1. Upper endoscopy revealed mild antral gastritis 2. Colonoscopy was within normal limits including the terminal ileum. Recommendations: Findings of this examination were discussed with the patient as well ashis family. He was advised to follow with the biopsy results. He will continue with omeprazole 20 mg daily and follow antireflux measures. He will be seen in office in 2-3 weeks.
[2021-05-31 07:47] VITALS: BP 108/69; PULSE 81
== END 2021-05-31 08:39 | disposition home or self-care (01) ==
LOC: ORWHC2ENDO 06:09
PROVIDERS: ATTEND Internal Medicine Gastroenterology
DX: K29.70 Gastritis, unspecified, without bleeding (principal)
CPT/HCPCS: 45378; 43239; 88305; J2001; J2704

== ENCOUNTER 2023-02-22 20:01 | Emergency (ER) | payer BC ==
[2023-02-22 20:20] VITALS: TEMP 98.3
[2023-02-22] MEDS ORDERED: CYCLOBENZAPRINE 10 MG TAB PO STA (21:23)
[2023-02-22] MEDS ORDERED: LIDOCAINE 5% PATCH TOPICAL STA (21:23)
[2023-02-22] MEDS ORDERED: KETOROLAC 15 MG/ML 1 ML VIAL IM STA (21:23)
[2023-02-22] MEDS ORDERED: HYDROmorphone 0.5 MG/0.5 ML SYRINGE IM STA (22:36)
[2023-02-22] MEDS ORDERED: ACET/COD 300 MG/30 MG STARTER PACK 6 TAB BTL PO STA (23:09)
--- NOTE | 2023-02-22 23:13 | ED ---
Back Pain HPI - General Chief Complaint: Back Pain/Injury Stated Complaint: Low back pain Time Seen by Provider: 02/22/23 20:46 Source: patient Limitations: no limitations - History of Present Illness Initial Comments: Patient is a 37-year-old male who presents to the emergency department for back pain. Patient reports significant pain in his back which started today after bending down the shower. He denies other injury. Pain is on both sides no radiation. Worse with twisting and bending of his back. No numbness or tingling. No loss of bowel or bladder function. No fever, chills, urinary symptoms. Patient states this has happened in the past and eventually healed. At that time he did have imaging of his back showing degeneration he has never been evaluated by a occupational medicine specialist. - Related Data Home Medications Medication Instructions Recorded Confirmed Albuterol Sulfate [Ventolin HFA] 2 puff INHALATION RT-Q6H PRN 05/08/21 05/31/21 Beclomethasone Dip 80 Mcg/Puff 2 puff INHALATION RT-BID 05/08/21 05/31/21 [Qvar] Tiotropium 18 Mcg/Puff [Spiriva] 1 puff INHALATION RT-DAILY 05/08/21 05/31/21 Omeprazole 20 mg PO BID 05/30/21 05/31/21 Previous Rx's Medication Instructions Recorded Cyclobenzaprine [Flexeril] 10 mg PO TID PRN #15 tab 02/22/23 Ibuprofen [Motrin] 800 mg PO Q8HR PRN #30 tab 02/22/23 Lidocaine 5% Patch [Lidoderm 5% 1 patch TOPICAL DAILY PRN #7 patch 02/22/23 Patch] Allergies Allergy/AdvReac Type Severity Reaction Status Date / Time Milk Containing Products Allergy Swelling Verified 02/22/23 20:20 [Dairy] Review of Systems ROS Statement: Those systems with pertinent positive or pertinent negative responses have been documented in the HPI. ROS Other: All systems not noted in ROS Statement are negative. Past Medical History Past Medical History: COPD Additional Past Medical History / Comment(s): abdominal discomfort History of Any Multi-Drug Resistant Organisms: None Reported Past Surgical History: Orthopedic Surgery Additional Past Surgical History / Comment(s): right elbow Past Anesthesia/Blood Transfusion Reactions: No Reported Reaction, Motion Sickness Past Psychological History: No Psychological Hx Reported Smoking Status: Former smoker Past Alcohol Use History: None Reported Past Drug Use History: None Reported - Past Family History Mother Family Medical History: Coronary Artery Disease (CAD), Hyperlipidemia, Hypertension Father Family Medical History: Coronary Artery Disease (CAD), Hyperlipidemia, Hypertension, Myocardial Infarction ([place]) General Exam Limitations: no limitations General appearance: alert Respiratory exam: Present: normal lung sounds bilaterally. Absent: respiratory distress, wheezes, rales, rhonchi, stridor Cardiovascular Exam: Present: regular rate, normal rhythm, normal heart sounds. Absent: systolic murmur, diastolic murmur, rubs, gallop, clicks GI/Abdominal exam: Present: soft, normal bowel sounds. Absent: distended, tenderness, guarding, rebound, rigid Back exam: Present: normal inspection, full ROM, paraspinal tenderness (Lumbar). Absent: CVA tenderness (R), CVA tenderness (L) Neurological exam: Present: alert Psychiatric exam: Present: normal affect, normal mood Skin exam: Present: warm, dry, intact, normal color. Absent: rash Course Vital Signs 02/22/23 02/22/23 20:18 23:18 Temperature 98.3 F Pulse Rate 81 75 Respiratory 20 18 Rate Blood Pressure 134/70 141/100 O2 Sat by Pulse 99 96 Oximetry Medical Decision Making - Medical Decision Making Was pt. sent in by a medical professional or institution (ZOEY Bridges, SENIOR GOVERNMENT PROGRAM ANALYST, urgent care, hospital, or senior care...) When possible be specific @ -No Did you speak to anyone other than the patient for history (EMS, parent, family, police, friend...)? What history was obtained from this source @ -No Did you review nursing and triage notes (agree or disagree)? Why? @ -I reviewed and agree with nursing and triage notes Were old charts reviewed (outside hosp., previous admission, EMS record, old EK G, old radiological studies, urgent care reports/EKG's, senior care records)? Report findings @ -No old charts were reviewed Differential Diagnosis (chest pain, altered mental status, abdominal pain women, abdominal pain men, vaginal bleeding, weakness, fever, dyspnea, syncope, headache, dizziness, GI bleed, back pain, seizure, CVA, palpatations, mental health)? @ Differential Back Pain: Strain, zoster, cauda equina syndrome, epidural abscess, vertebral osteomyelitis, discitis, fracture, subluxation, disc herniation, DJD, spinal stenosis, dissection, AAA, pancreatitis, peptic ulcer disease, pyelonephritis, kidney stone, this is not meant to be an all-inclusive list. EKG interpreted by me (3pts min.). @ -As above X-rays interpreted by me (1pt min.). @ -None done CT interpreted by me (1pt min.). @ -None done U/S interpreted by me (1pt. min.). @ -None done What testing was considered but not performed or refused? (CT, X-rays, U/S, labs)? Why? @ -None What meds were considered but not given or refused? Why? @ -None Did you discuss the management of the patient with other professionals (professionals i.e. , PA, SENIOR GOVERNMENT PROGRAM ANALYST, lab, RT, psych nurse, health social work professor, product distribution specialist, teacher, intelligence officer basic, piano case maker)? Give summary @ -No Was smoking cessation discussed for >3mins.? @ -No Was critical care preformed (if so, how long)? @ -No Were there social determinants of health that impacted care today? How? (Homelessness, low income, unemployed, alcoholism, drug addiction, transportation, low edu. Level, literacy, decrease access to med. care, assisted, rehab)? @ -No Was there de-escalation of care discussed even if they declined (Discuss DNR or withdrawal of care, Hospice)? DNR status @ -No What co-morbidities impacted this encounter? (DM, HTN, Smoking, COPD, CAD, Cancer, CVA, ARF, Chemo, Hep., AIDS, mental health diagnosis, sleep apnea, morbid obesity)? @ -None Was patient admitted / discharged? Hospital course, mention meds given and route, prescriptions, significant lab abnormalities, going to OR and other pertinent info. @ -Patient presented with back pain. Patient given Toradol, Flexeril, lidocaine patch without relief. He was then given 1 dose of Dilaudid which helped his pain. Patient has no neurological deficit. No midline tenderness. Patient in stable medical condition for discharge. He is discharged with pain management including starter pack of Tylenol 3. Discussed sedating effects. Patient concerned about his pain he is referred to occupational medicine specialist for further evaluation and management. Undiagnosed new problem with uncertain prognosis? @ -No Drug Therapy requiring intensive monitoring for toxicity (Heparin, Nitro, Insulin, Cardizem)? @ -No Were any procedures done? @ -No Diagnosis/symptom? @ -Mechanical back pain Acute, or Chronic, or Acute on Chronic? @ -Acute Uncomplicated (without systemic symptoms) or Complicated (systemic symptoms)? @ -Uncomplicated Side effects of treatment? @ -No Exacerbation, Progression, or Severe Exacerbation? @ -No Poses a threat to life or bodily function? How? (Chest pain, [place], [place], pneumonia, PE, COPD, DKA, ARF, appy, cholecystitis, CVA, Diverticulitis, Homicidal, Suicidal, threat to staff... and all critical care pts) @ -No Dr. Batista is my attending Disposition Clinical Impression: Mechanical back pain Disposition: HOME SELF-CARE Condition: Good Instructions (If sedation given, give patient instructions): Acute Low Back Pain (ED) Additional Instructions: Apply warm compress. Alternate Tylenol and Motrin every 3-4 hours for pain. States Tylenol 3 for severe pain. Do not take Tylenol and Tylenol 3 together. Do not drink alcohol or operate machinery while taking Tylenol 3 or Flexeril as it can cause drowsiness. Follow-up with emergency management program specialist in 1-2 days. Return to the emergency department experience new, concerning, or worsening symptoms Prescriptions: Cyclobenzaprine [Flexeril] 10 mg PO TID PRN #15 tab PRN Reason: Muscle Spasm Lidocaine 5% Patch [Lidoderm 5% Patch] 1 patch TOPICAL DAILY PRN #7 patch PRN Reason: Pain Ibuprofen [Motrin] 800 mg PO Q8HR PRN #30 tab PRN Reason: Pain Is patient prescribed a controlled substance at d/c from ED?: No Referrals: Jane Dow DO [Primary Care Provider] - 1-2 days
[2023-02-22 23:19] VITALS: BP 141/100; PULSE 75; RESP 18
== END 2023-02-22 23:18 | disposition home or self-care (01) ==
LOC: EC 20:01
DX: M54.50 Low back pain, unspecified (principal); J44.9 Chronic obstructive pulmonary disease, unspecified; Z87.891 Personal history of nicotine dependence; Z79.51 Long term (current) use of inhaled steroids; Z79.899 Other long term (current) drug therapy; Z91.011 Allergy to milk products
CPT/HCPCS: 99283; 96372 ×2; J1885; J1170

== ENCOUNTER 2024-09-11 17:12 | Emergency (ER) | payer BC ==
[2024-09-11 17:16] VITALS: RESP 16
--- NOTE | 2024-09-11 17:30 | ED ---
Male Urogenital HPI - General Chief complaint: Urogenital Stated complaint: Groin complications Time Seen by Provider: 09/11/24 17:23 Source: patient, RN notes reviewed Mode of arrival: ambulatory Limitations: no limitations - History of Present Illness Initial comments: This is a 38-year-old male presenting with left chest pain x 3 weeks. Patient states he continues to feel a sharp jolts of pain every time he leaves the shower and with certain movements bending forward. Otherwise denies any pain throughout the day. Patient denies swelling or significant tenderness. Denies fever, chills, dysuria, hematuria, hematospermia or urethral discharge. MD Complaint: testicle pain Onset/Timin -: week(s) Location: left testicle Radiation: none Quality: sharp Consistency: intermittent Worsens with: movement Reports: denies other symptoms - Related Data Home Medications Medication Instructions Recorded Confirmed Albuterol Sulfate [Ventolin HFA] 2 puff INHALATION RT-Q6H PRN 05/08/21 05/31/21 Beclomethasone Dip 80 Mcg/Puff 2 puff INHALATION RT-BID 05/08/21 05/31/21 [Qvar] Tiotropium 18 Mcg/Puff [Spiriva] 1 puff INHALATION RT-DAILY 05/08/21 05/31/21 Omeprazole 20 mg PO BID 05/30/21 05/31/21 Previous Rx's Medication Instructions Recorded Cyclobenzaprine [Flexeril] 10 mg PO TID PRN #15 tab 02/22/23 Ibuprofen [Motrin] 800 mg PO Q8HR PRN #30 tab 02/22/23 Lidocaine 5% Patch [Lidoderm 5% 1 patch TOPICAL DAILY PRN #7 patch 02/22/23 Patch] Allergies Allergy/AdvReac Type Severity Reaction Status Date / Time Milk Containing Products Allergy Swelling Verified 09/11/24 17:16 (Dairy) [Dairy] Review of Systems ROS Statement: Those systems with pertinent positive or pertinent negative responses have been documented in the HPI. ROS Other: All systems not noted in ROS Statement are negative. Past Medical History Past Medical History: COPD Additional Past Medical History / Comment(s): abdominal discomfort History of Any Multi-Drug Resistant Organisms: None Reported Past Surgical History: Orthopedic Surgery Additional Past Surgical History / Comment(s): right elbow Past Anesthesia/Blood Transfusion Reactions: No Reported Reaction, Motion Sickness Past Psychological History: No Psychological Hx Reported Smoking Status: Former smoker Past Alcohol Use History: None Reported Past Drug Use History: None Reported - Past Family History Mother Family Medical History: Coronary Artery Disease (CAD), Hyperlipidemia, Hypert ension Father Family Medical History: Coronary Artery Disease (CAD), Hyperlipidemia, Hypertension, Myocardial Infarction ([place]) General Exam Limitations: no limitations General appearance: alert, in no apparent distress Head exam: Present: atraumatic, normocephalic, normal inspection Eye exam: Present: normal appearance, PERRL, EOMI. Absent: scleral icterus, conjunctival injection, periorbital swelling ENT exam: Present: normal exam, mucous membranes moist Neck exam: Present: normal inspection. Absent: tenderness, meningismus, lymphadenopathy Respiratory exam: Present: normal lung sounds bilaterally. Absent: respiratory distress, wheezes, rales, rhonchi, stridor Cardiovascular Exam: Present: regular rate, normal rhythm, normal heart sounds. Absent: systolic murmur, diastolic murmur, rubs, gallop, clicks GI/Abdominal exam: Present: soft, normal bowel sounds. Absent: distended, tenderness, guarding, rebound, rigid exam: Present: normal inspection, other (Cremasteric reflex intact). Absent: testicular tenderness, urethral discharge, scrotal swelling, vertical testicular lie Extremities exam: Present: normal inspection, full ROM, normal capillary refill. Absent: tenderness, pedal edema, joint swelling, calf tenderness Back exam: Present: normal inspection Neurological exam: Present: alert, oriented X3, CN II-XII intact Psychiatric exam: Present: normal affect, normal mood Skin exam: Present: warm, dry, intact, normal color. Absent: rash Course Vital Signs 09/11/24 17:13 Temperature 97.4 F L Pulse Rate 68 Respiratory 16 Rate Blood Pressure 144/85 O2 Sat by Pulse 100 Oximetry Medical Decision Making - Medical Decision Making Was pt. sent in by a medical professional or institution (, PA, LOCAL CITY DRIVER, urgent care, hospital, or residential...) When possible be specific @ -[No] Did you speak to anyone other than the patient for history (EMS, parent, family, police, friend...)? What history was obtained from this source @ -[No] Did you review nursing and triage notes (agree or disagree)? Why? @ -[I reviewed and agree with nursing and triage notes] Were old charts reviewed (outside hosp., previous admission, EMS record, old EKG, old radiological studies, urgent care reports/EKG's, residential records)? Report findings @ -[No old charts were reviewed] Differential Diagnosis (chest pain, altered mental status, abdominal pain women, abdominal pain men, vaginal bleeding, weakness, fever, dyspnea, syncope, headache, dizziness, GI bleed, back pain, seizure, CVA, palpatations, mental health, musculoskeletal)? @ -Hydrocele, spermatocele, varicocele, orchitis, epididymitis, UTI, testicular torsion, STI, testicular neoplasm, this is not an exhaustive list EKG interpreted by me (3pts min.). @ -Not done X-rays interpreted by me (1pt min.). @ -[None done] CT interpreted by me (1pt min.). @ -[None done] U/S interpreted by me (1pt. min.). @ -[None done] What testing was considered but not performed or refused? (CT, X-rays, U/S, labs)? Why? @ -[None] What meds were considered but not given or refused? Why? @ -[None] Did you discuss the management of the patient with other professionals (professionals i.e. , PA, LOCAL CITY DRIVER, lab, RT, psych nurse, social director, living advisor, teacher, real estate officer, shelter case manager)? Give summary @ -[No] Was smoking cessation discussed for >3mins.? @ -[No] Was critical care preformed (if so, how long)? @ -[No] Were there social determinants of health that impacted care today? How? (Homelessness, low income, unemployed, alcoholism, drug addiction, transportation, low edu. Level, literacy, decrease access to med. care, residential, rehab)? @ -[No] Was there de-escalation of care discussed even if they declined (Discuss DNR or withdrawal of care, Hospice)? DNR status @ -[No] What co-morbidities impacted this encounter? (DM, HTN, Smoking, COPD, CAD, Cancer, CVA, ARF, Chemo, Hep., AIDS, mental health diagnosis, sleep apnea, morbid obesity)? @ -[None] Was patient admitted / discharged? Hospital course, mention meds given and route, prescriptions, significant lab abnormalities, going to OR and other pertinent info. @ -[hospital course] Undiagnosed new problem with uncertain prognosis? @ -[No] Drug Therapy requiring intensive monitoring for toxicity (Heparin, Nitro, Insulin, Cardizem)? @ -[No] Were any procedures done? @ -[No] Diagnosis/symptom? @ -[default] Acute, or Chronic, or Acute on Chronic? @ -Acute Uncomplicated (without systemic symptoms) or Complicated (systemic symptoms)? @ -Uncomplicated Side effects of treatment? @ -[No] Exacerbation, Progression, or Severe Exacerbation? @ -[No] Poses a threat to life or bodily function? How? (Chest pain, [place], [place], pneumonia, PE, COPD, DKA, ARF, appy, cholecystitis, CVA, Diverticulitis, Homicidal, Suicidal, threat to staff... and all critical care pts) @ -[No] - Lab Data Lab Results 09/11/24 Range/Units 17:30 Urine Color Light Yellow Urine Appearance Clear (Clear) Urine pH 5.5 (5.0-8.0) Ur Specific [place] 1.026 (1.001-1.035) Urine Protein Negative (Negative) Urine Glucose (UA) Negative (Negative) Urine Ketones Negative (Negative) Urine Blood Negative (Negative) Urine Nitrite Negative (Negative) Urine Bilirubin Negative (Negative) Urine Urobilinogen <2.0 (<2.0) mg/dL Ur Leukocyte Esterase Negative (Negative) Disposition Clinical Impression: Left varicocele Disposition: HOME SELF-CARE Condition: Good Instructions (If sedation given, give patient instructions): Varicocele (ED), Testicle Pain (ED) Additional Instructions: Supportive jockstrap/underwear and NSAIDs for pain relief. Follow-up with PCP/urology for any ongoing pain. Is patient prescribed a controlled substance at d/c from ED?: No Referrals: Jane Dow DO [Primary Care Provider] - 1-2 days Matthew Bunch MD [STAFF PHYSICIAN] - 1-2 days Time of Disposition: 18:23
[2024-09-11 17:48] LABS: Appearance,Urine Clear (Clear); Bilirubin,Urine Negative (Negative); Blood,Urine Negative (Negative); Color,Urine Light Yellow; Glucose,Urine (UA) Negative (Negative); Ketones,Urine Negative (Negative); Leukocyte Esterase,Urine Negative (Negative); Nitrite,Urine Negative (Negative); PH, Urine 5.5 (5.0-8.0); Protein,Urine Negative (Negative); Specific Gravity,Urine 1.026 (1.001-1.035); Urobilinogen,Urine <2.0 mg/dL (<2.0)
--- NOTE | 2024-09-11 18:17 | US ---
EXAMINATION TYPE: US scrotum with doppler. DATE OF EXAM: 09/11/2024 COMPARISON: US 2017, CT 2020 CLINICAL INDICATION: Male, 38 years old with history of Recurring left teste pain; negative edema, TT P; Pain left testicle that started 1 month ago. Patient states he feels like something feels like it is torn. TECHNIQUE: Grayscale, color Doppler and spectral Doppler imaging of the scrotum. FINDINGS: EXAM MEASUREMENTS: TESTICLES: Right Testicle: 4.3 x 2.8 x 2.5 cm Left Testicle: 4.1 x 3.0 x 2.2 cm EPIDIDYMIS HEAD: Right Epididymis: 1.0 x 1.2 x 1.2 cm Left Epididymis: 0.9 x 1.0 x 1.0 cm Doppler performed to assess for testicular vascularity; bilateral color flow and spectral waveforms a re seen. Presence of hydroceles: No Presence of varicoceles: Prominent vessels seen on the left that measure 2 mm. IMPRESSION: Left-sided varicocele. Otherwise unremarkable study. [facility], , 09/11/2024 6:15 PM
[2024-09-11 18:52] VITALS: BP 125/81; PULSE 78; TEMP 99
[2024-09-12 12:51] LABS: C. trachomatis,PCR Negative (Negative)
[2024-09-12 13:17] LABS: N. gonorrhoeae,PCR Negative (Negative)
== END 2024-09-11 18:53 | disposition home or self-care (01) ==
LOC: EC 17:12
DX: I86.1 Scrotal varices (principal); Z87.891 Personal history of nicotine dependence; Z91.011 Allergy to milk products
CPT/HCPCS: 76870; 81003; 87491; 87591; 93975; 99284